=== PATIENT | female | born 1950 | race Caucasian/White ===

== ENCOUNTER 2016-09-28 09:43 | Emergency (ER) | payer MEDICARE, OTHER ==
[2016-09-28] MEDS ORDERED: Haloperidol Lactate 5 MG/ML SDV IM ONE ×2 (10:23→11:53)
[2016-09-28] MEDS ORDERED: Benztropine 1 MG Tab PO STA (10:23)
[2016-09-28] MEDS ORDERED: Sodium Chloride 0.9% 500 ML IV ONE (10:23)
--- NOTE | 2016-09-28 10:51 | EDM.PDOC ---
ED HPI GENERAL MEDICAL PROBLEM - General Chief Complaint: Neuro Symptoms/Deficits Stated Complaint: SEVERE MIGRAIN/FACE NUMBNESS Time Seen by Provider: 09/28/16 10:08 Source of Information: Reports: Patient, Family (), RN Notes Reviewed History Limitations: Reports: No Limitations - History of Present Illness INITIAL COMMENTS - FREE TEXT/NARRATIVE: The patient states that she developed an aura, which she describes as visual waves, at 15:00 on 09/24/2016. She went home, where she developed a headache felt in the back of her head, extending to her forehead. She also developed alternating right hand, left hand, and left leg numbness, along with some word finding difficulty. She took some Tylenol, and slept until Friday noon, 09/25/2016. At that time, her headache was minimal, but she continued to have left forearm/hand and left leg numbness, which has persisted until today. She states that she had some photophobia on Friday and Friday, but none presently. She had nausea on Friday, but no vomiting. She states that she had some weakness to her left upper and left lower extremity on Friday, but not now. Today she reports having an aura which she describes as seeing pink. She reports photophobia presently. She reports a dull sensation to the left side of her face and to her left foot. The patient states that she has a history of migraines, but has not had one about 5 years. Headache Pain Score (Numeric/FACES): 3 - Related Data Allergies Allergy/AdvReac Type Severity Reaction Status Date / Time carbamazepine [From Tegretol] Allergy Hallucinati Verified 09/28/16 10:02 ons AMANTIDINE Allergy Other Uncoded 09/28/16 10:01 antidressant. Allergy Change Uncoded 09/28/16 10:01 Mental Status INDERAL Allergy Other Uncoded 09/28/16 10:01 PRIMIDONE Allergy Other Uncoded 09/28/16 10:01 SULFA Allergy Rash Uncoded 09/28/16 10:01 TAPE AND ADHESIVES Allergy Redness Uncoded 09/28/16 10:01 Home Meds: Home Meds ALPRAZolam [Xanax] 1 mg PO QID PRN 05/01/14 [History] Cholecalciferol (Vitamin D3) [Vitamin D] 3,000 oz PO DAILY 05/01/14 [History] Estrogens, Conjugated [Premarin] 1.25 mg PO DAILY 05/01/14 [History] Fluticasone Propionate [Flonase] 2 spray NASBOTH DAILY 05/01/14 [History] Fluticasone Propionate [Flovent HFA] 2 puff INH BID 05/01/14 [History] Lisinopril 5 mg PO DAILY 05/01/14 [History] metFORMIN [Glucophage] 750 mg PO DAILY 05/01/14 [History] L Acidophil/B Lactis/B Longum [Florajen3] 1 tab PO DAILY 05/13/14 [History] Albuterol Sulfate [Proventil Hfa] 1 - 2 puff INH Q4H PRN 09/28/16 [History] Aspirin 81 mg PO DAILY 09/28/16 [History] Cholestyramine (With Sugar) [Questran Powder] 1 scoop PO DAILY 09/28/16 [History ] Rizatriptan Benzoate [Rizatriptan] 5 mg PO Q2H PRN #6 tab.rapdis 09/28/16 [Rx] metFORMIN [Glucophage XR] 500 mg PO BEDTIME 09/28/16 [History] Past Medical History Cardiovascular History: Reports: High Cholesterol Respiratory History: Reports: COPD Gastrointestinal History: Reports: Celiac Disease Genitourinary History: Reports: Renal Calculus, Urinary Incontinence Neurological History: Reports: Migraines, Other (See Below) (Essential tremor) Psychiatric History: Reports: Anxiety Endocrine/Metabolic History: Reports: Diabetes, Type II Oncologic (Cancer) History: Reports: Malignant Melanoma - Past Surgical History HEENT Surgical History: Reports: Tonsillectomy GI Surgical History: Reports: Appendectomy, Cholecystectomy Female Surgical History: Reports: Section (x 4), Hysterectomy, Salpingo-Oophorectomy Musculoskeletal Surgical History: Reports: Arthroscopic Procedure (left rotator cuff), ORIF (left humerus) Social & Family History - Family History Family Medical History: Noncontributory - Tobacco Use Smoking Status *Q: Current Every Day Smoker Years of Tobacco use: 45 Packs/Tins Daily: 0.5 Packs/Tins Daily Comment: down from 1 ppd Used Tobacco, but Quit: Yes - Alcohol Use Alcohol Use History: Yes Alcohol Use Frequency: Rarely - Recreational Drug Use Recreational Drug Use: No - Living Situation & Occupation Living situation: Reports: , with Spouse Occupation: Retired ED ROS GENERAL - Review of Systems Review Of Systems: See Below Constitutional: Reports: No Symptoms HEENT: Reports: No Symptoms Respiratory: Reports: No Symptoms Cardiovascular: Reports: No Symptoms Endocrine: Reports: No Symptoms GI/Abdominal: Reports: No Symptoms : Reports: No Symptoms Musculoskeletal: Reports: No Symptoms Skin: Reports: No Symptoms Neurological: Reports: No Symptoms Psychiatric: Reports: No Symptoms Hematologic/Lymphatic: Reports: No Symptoms Immunologic: Reports: No Symptoms ED EXAM, NEURO - Physical Exam Exam: See Below Exam Limited By: No Limitations General Appearance: Alert, WD/WN, No Apparent Distress Eye Exam: Bilateral Eye: Normal Inspection Ears: Normal External Exam, Hearing Grossly Normal Nose: Normal Inspection, No Blood Throat/Mouth: Normal Inspection, Normal Lips, Normal Voice, No Airway Compromise Head Exam: Atraumatic, Normocephalic Neck: Normal Inspection, Full Range of Motion Respiratory/Chest: No Respiratory Distress, Lungs Clear, Normal Breath Sounds, No Accessory Muscle Use Cardiovascular: Normal Peripheral Pulses, Regular Rate, Rhythm, No Gallop, No JVD, No Murmur, No Rub GI/Abdominal: Normal Bowel Sounds, Soft, Non-Tender, No Organomegaly, No Distention, No Abnormal Bruit, No Mass (Female) Exam: Deferred Rectal (Female) Exam: Deferred Neurological: Alert, Normal Dorsiflexion, CN II-XII Intact, Normal Plantar Flexion, No Motor/Sensory Deficits, Oriented x 3, Other (Resting tremor) Back Exam: Normal Inspection, Full Range of Motion, NT Extremities: Normal Inspection, Normal Range of Motion, No Pedal Edema, Normal Capillary Refill Psychiatric: Normal Affect Skin Exam: Warm, Dry, Intact, Normal Color, No Rash EKG INTERPRETATION EKG Date: 09/28/16 Time: 09:54 Rhythm: Other (Sinus tachycardia) Rate (Beats/Min): 111 [place]: Normal P-Wave: Present QRS: Normal ST-T: Normal QT: Normal Comparison: No Change (02/21/2015) Course - Vital Signs Last Recorded V/S: Last Vital Signs Temp 36.6 C 09/28/16 09:52 Pulse 93 09/28/16 13:10 Resp 18 09/28/16 13:10 BP 133/68 09/28/16 13:10 Pulse Ox 96 09/28/16 13:10 - Orders/Labs/Meds Orders: Active Orders 24 hr Category Date Time Status Head wo Cont [CT] Stat Exams 09/28/16 10:23 Taken Meds: Medications Discontinued Medications Generic Name Dose Route Start Last Admin Trade Name Freq PRN Reason Stop Dose Admin Benztropine Mesylate 1 mg 09/28/16 10:23 09/28/16 10:55 Cogentin PO 09/28/16 10:24 1 mg ONETIME STA Administration Haloperidol Lactate 5 mg 09/28/16 10:23 09/28/16 11:45 Haldol IM 09/28/16 10:24 Not Given ONETIME ONE Haloperidol Lactate 5 mg 09/28/16 11:53 09/28/16 11:55 Haldol IM 09/28/16 11:54 5 mg ONETIME ONE Administration Sodium Chloride 500 mls @ 1,000 mls/hr 09/28/16 10:23 09/28/16 10:50 Normal Saline IV 09/28/16 10:52 1,000 mls/hr .BOLUS ONE Administration - Radiology Interpretation Free Text/Narrative:: CT of the head without contrast is read by [facility] as "Chronic age related changes but no evidence of acute intracranial pathology." - Re-Assessments/Exams Free Text/Narrative Re-Assessment/Exam: 09/28/16 11:53 CT results discussed with the patient and her . The patient refused the Haldol, but took the Cogentin. Obviously, she is not feeling any better. I explained the purpose of the Haldol and Cogentin, and the patient has now agreed to take the Haldol. 09/28/16 12:33 Following Haldol, the patient now reports near-complete resolution of the numbness of her left upper and left lower extremities. She states that she feels much better. I will discharge her home with a prescription for Maxalt. Departure - Departure Time of Disposition: 12:34 Disposition: Home, Self-Care 01 Condition: Good Clinical Impression: Migraine headache with aura - Discharge Information Prescriptions: Rizatriptan Benzoate [Rizatriptan] 5 mg PO Q2H PRN #6 tab.rapdis PRN Reason: Headache Instructions: Migraine Headache, [id number] Referrals: Michelet,Kaiden G Jr, MD [Primary Care Provider] - Forms: ED Department Discharge Additional Instructions: You were seen in the emergency room for a headache with aura, and left upper and left lower extremity numbness. Workup in the ER included a CT scan of your head, which was normal. You received Haldol, Cogentin, and IV fluid in the ER, with significant improvement in her symptoms. This confirms that your symptoms were due to a migraine. We recommend you get plenty of rest today in a quiet, dark place. Stay well hydrated. Dissolve 1 tablet of the anti-migraine medicine Maxalt in your mouth at the earliest sign of a migraine headache. You may repeat every 2 hours, to a maximum of 30 mg within a 24-hour period. Follow-up with your PCP, Dr. Tafoya, as needed. If any other problems, please do not hesitate to return to the ER. - My Orders Last 24 Hours: My Active Orders 09/28/16 10:23 Head wo Cont [CT] Stat - Assessment/Plan Last 24 Hours: My Active Orders 09/28/16 10:23 Head wo Cont [CT] Stat
[2016-09-28 13:18] VITALS: BP 133/68
--- NOTE | 2016-09-30 14:37 | CT ---
Head CT Technique: Multiple axial sections through the brain were obtained. Study was repeated due to motion artifact. Comparison: Previous head CT exam of 05/13/14 and MRI of 05/13/14. Findings: Ventricles along with basal cisterns and sulci over the convexities are within normal limits for the patient's age. Minimal diminished density is noted within the periventricular white matter compatible with minimal small vessel ischemic demyelination change. No other abnormal parenchymal densities are seen. No evidence of intracranial hemorrhage. No midline shift or mass effect is seen. Bone window settings which show the visualized sinuses to appear clear. No acute calvarial abnormality is seen. Impression: 1. Slight senescent change. Nothing acute is identified on noncontrast head CT study. No significant change is seen from prior studies. Diagnostic code #2 I agree with preliminary report issued by [facility] ([facility] preliminary report dictated on 09/28/16, 11:52 AM Central Time)
== END 2016-09-28 13:10 | disposition home or self-care (01) ==
LOC: JD.ED 09:43
DX: G43.109 Migraine with aura, not intractable, without status migrainosus (principal); E78.00 Pure hypercholesterolemia, unspecified; J44.9 Chronic obstructive pulmonary disease, unspecified; E11.9 Type 2 diabetes mellitus without complications; F41.9 Anxiety disorder, unspecified; F17.210 Nicotine dependence, cigarettes, uncomplicated; Z88.8 Allergy status to other drugs, medicaments and biological substances; Z79.82 Long term (current) use of aspirin; Z79.4 Long term (current) use of insulin; Z79.84 Long term (current) use of oral hypoglycemic drugs; Z90.49 Acquired absence of other specified parts of digestive tract; Z98.890 Other specified postprocedural states; Z88.2 Allergy status to sulfonamides; Z90.710 Acquired absence of both cervix and uterus
CPT/HCPCS: 70450; 96360; 96361; 96372; 99284; A9270; J1630; J7040

== ENCOUNTER 2017-06-27 11:57 | Emergency (ER) | payer MEDICARE, OTHER ==
[2017-06-27 12:08] VITALS: BP 133/107
--- NOTE | 2017-06-27 12:17 | EDM.PDOC ---
ED HPI GENERAL MEDICAL PROBLEM - General Chief Complaint: Cardiovascular Problem Stated Complaint: TREMORS/DIZZY/FAST HEART RATE Time Seen by Provider: 06/27/17 12:16 Source of Information: Reports: Patient - History of Present Illness INITIAL COMMENTS - FREE TEXT/NARRATIVE: Patient is here for evaluation of dizziness and tachycardia. She notes that she typically has a high heart rate, she does have anxiety and is on Xanax 4 times daily as well as fluoxetine. She has a chronic tremor and has seen neurology for this. Patient also notes that she has been under extreme stress with family things recently. She denies any chest pain or shortness of breath. Episode of dizziness this morning was more of a lightheaded feeling when she was showering and she felt like she would pass out but she did not. She denies any pain at all currently. Does not currently feel dizzy. She has a history of hypertension but no CAD. Bilateral Shoulder Pain Score (Numeric/FACES): 2 - Related Data Allergies Allergy/AdvReac Type Severity Reaction Status Date / Time carbamazepine [From Tegretol] Allergy Hallucinati Verified 09/28/16 10:02 ons AMANTIDINE Allergy Other Uncoded 09/28/16 10:01 antidressant. Allergy Change Uncoded 09/28/16 10:01 Mental Status INDERAL Allergy Other Uncoded 09/28/16 10:01 PRIMIDONE Allergy Other Uncoded 09/28/16 10:01 SULFA Allergy Rash Uncoded 09/28/16 10:01 TAPE AND ADHESIVES Allergy Redness Uncoded 09/28/16 10:01 Home Meds: Home Meds ALPRAZolam [Xanax] 1 mg PO QID PRN 05/01/14 [History] Cholecalciferol (Vitamin D3) [Vitamin D] 4,000 unit PO DAILY 05/01/14 [History] Estrogens, Conjugated [Premarin] 1.25 mg PO DAILY 05/01/14 [History] Fluticasone Propionate [Flonase] 2 spray NASBOTH DAILY 05/01/14 [History] Fluticasone Propionate [Flovent HFA] 2 puff INH BID 05/01/14 [History] Lisinopril 5 mg PO DAILY 05/01/14 [History] metFORMIN [Glucophage] 750 mg PO DAILY 05/01/14 [History] Aspirin 81 mg PO DAILY 09/28/16 [History] Cholestyramine (With Sugar) [Questran Powder] 1 scoop PO DAILY 09/28/16 [History ] metFORMIN [Glucophage XR] 500 mg PO BEDTIME 09/28/16 [History] L.acidoph,Paraccoryi, B.lactis [Probiotic] 1 tab PO DAILY 06/27/17 [History] Past Medical History Cardiovascular History: Reports: High Cholesterol Respiratory History: Reports: COPD Gastrointestinal History: Reports: Celiac Disease Genitourinary History: Reports: Renal Calculus, Urinary Incontinence Other Musculoskeletal History: patient has hsitory of heriditary neck tremors. Neurological History: Reports: Migraines, Other (See Below) Other Neuro History: tremors Psychiatric History: Reports: Anxiety Endocrine/Metabolic History: Reports: Diabetes, Type II Oncologic (Cancer) History: Reports: Malignant Melanoma - Past Surgical History HEENT Surgical History: Reports: Tonsillectomy GI Surgical History: Reports: Appendectomy, Cholecystectomy Female Surgical History: Reports: Section, Hysterectomy, Salpingo- Oophorectomy Musculoskeletal Surgical History: Reports: Arthroscopic Procedure, ORIF Social & Family History - Family History Family Medical History: Noncontributory - Tobacco Use Smoking Status *Q: Current Every Day Smoker Years of Tobacco use: 45 Packs/Tins Daily: 0.2 Used Tobacco, but Quit: Yes Month/Year Tobacco Last Used: THIS MONTH - Caffeine Use Caffeine Use: Reports: None - Alcohol Use Days Per Week of Alcohol Use: 0 - Recreational Drug Use Recreational Drug Use: No - Living Situation & Occupation Living situation: Reports: , with Spouse Occupation: Retired ED ROS GENERAL - Review of Systems Review Of Systems: See Below Constitutional: Reports: Weakness, Fatigue. Denies: Fever, Chills, Malaise, Night Sweats, Decreased Appetite HEENT: Reports: No Symptoms Respiratory: Reports: Other (Recent URI, sx have resolved). Denies: Shortness of Breath, Wheezing, Cough Cardiovascular: Reports: Blood Pressure Problem, Lightheadedness. Denies: Chest Pain, Claudication, Dyspnea on Exertion, Edema, Orthopnea, Palpitations Endocrine: Reports: Fatigue GI/Abdominal: Reports: No Symptoms : Reports: No Symptoms Musculoskeletal: Reports: No Symptoms Skin: Reports: No Symptoms Neurological: Reports: Dizziness, Tremors. Denies: Headache, Numbness, Pre- Existing Deficit, Tingling, Trouble Speaking Psychiatric: Reports: Anxiety, Depression. Denies: Suicidal Ideation Hematologic/Lymphatic: Reports: No Symptoms ED EXAM, GENERAL - Physical Exam Exam: See Below Exam Limited By: No Limitations General Appearance: Alert, WD/WN, Anxious Ears: Normal External Exam, Normal Canal, Normal TMs Nose: Normal Inspection, Normal Mucosa Throat/Mouth: Normal Inspection, Normal Oropharynx Head: Atraumatic, Normocephalic Neck: Normal Inspection Respiratory/Chest: No Respiratory Distress, Lungs Clear, Normal Breath Sounds Cardiovascular: Normal Peripheral Pulses, Regular Rate, Rhythm, No Murmur Peripheral Pulses: 2+: Posterior Tibial (L), Posterior Tibial (R) GI/Abdominal: Normal Bowel Sounds, Soft, Non-Tender (Female) Exam: Normal External Exam Neurological: Alert, Oriented, No Motor/Sensory Deficits Psychiatric: Normal Affect, Anxious Skin Exam: Warm, Dry, Intact EKG INTERPRETATION EKG Date: 06/27/17 Time: 12:14 Rhythm: NSR Rate (Beats/Min): 96 Course - Vital Signs Last Recorded V/S: Last Vital Signs Temp 96.5 F 06/27/17 12:07 Pulse 105 H 06/27/17 12:07 Resp 17 06/27/17 12:07 BP 133/107 H 06/27/17 12:07 Pulse Ox 100 06/27/17 12:07 - Orders/Labs/Meds Orders: Active Orders 24 hr Category Date Time Status EKG 12 Lead [EKG Documentation Completion] [RC] STAT Care 06/27/17 12:12 Active UA W/MICROSCOPIC [URIN] Stat Lab 06/27/17 14:55 Results Sodium Chloride 0.9% [Saline Flush] Med 06/27/17 12:29 Active 10 ml FLUSH ASDIRECTED PRN Saline Lock Insert [OM.PC] Routine Oth 06/27/17 12:29 Ordered Medication Orders Sodium Chloride (Saline Flush) 10 ml FLUSH ASDIRECTED PRN PRN Reason: Keep Vein Open Last Admin: 06/27/17 12:41 Dose: 10 ml Labs: Laboratory Tests 06/27/17 06/27/17 06/27/17 Range/Units 12:40 12:40 12:40 WBC 11.80 H (3.98-10.04) K/mm3 RBC 4.39 (3.98-5.22) M/mm3 Hgb 13.5 (11.2-15.7) gm/L Hct 40.2 (34.1-44.9) % MCV 91.6 (79.4-94.8) fl MCH 30.8 (25.6-32.2) pg MCHC 33.6 (32.2-35.5) g/dl RDW Std Deviation 44.0 (36.4-46.3) fL Plt Count 386 H (182-369) K/mm3 MPV 8.8 L (9.4-12.3) fl Neutrophils % (Manual) 71 H (40-60) % Band Neutrophils % 0 (0-10) % Lymphocytes % (Manual) 28 (20-40) % Atypical Lymphs % 0 % Monocytes % (Manual) 1 L (2-10) % Eosinophils % (Manual) 0 L (0.7-5.8) % Basophils % (Manual) 0 L (0.1-1.2) Platelet Estimate Adequate Plt Morphology Comment Normal RBC Morph Comment Normal Sodium 140 (136-145) mEq/L Potassium 4.5 (3.5-5.1) mEq/L Chloride 100 (98-107) mEq/L Carbon Dioxide 25 (21-32) mEq/L Anion Gap 19.5 H (5-15) BUN 12 (7-18) mg/dL Creatinine 0.9 (0.55-1.02) mg/dL Est Cr Clr Drug Dosing 50.86 mL/min Estimated GFR (MDRD) > 60 (>60) mL/min BUN/Creatinine Ratio 13.3 L (14-18) Glucose 151 H (80-115) mg/dL Calcium 9.4 (8.5-10.1) mg/dL Magnesium 1.1 L (1.8-2.4) mg/dl Total Bilirubin 0.2 (0.2-1.0) mg/dL AST 11 L (15-37) U/L ALT 20 (14-59) U/L Alkaline Phosphatase 67 (46-116) U/L Troponin I < 0.017 (0.00-0.056) ng/mL C-Reactive Protein 1.4 H* (<1.0) mg/dL Total Protein 6.9 (6.4-8.2) g/dl Albumin 3.5 (3.4-5.0) g/dl Globulin 3.4 gm/dL Albumin/Globulin Ratio 1.0 (1-2) TSH 3rd Generation 1.495 (0.358-3.74) uIU/mL Urine Color (Yellow) Urine Appearance (Clear) Urine pH (5.0-8.0) Ur Specific B[place]y (1.005-1.030) Urine Protein (Negative) Urine Glucose (UA) (Negative) Urine Ketones (Negative) Urine Occult Blood (Negative) Urine Nitrite (Negative) Urine Bilirubin (Negative) Urine Urobilinogen (0.2-1.0) Ur Leukocyte Esterase (Negative) 06/27/17 Range/Units 14:55 WBC (3.98-10.04) K/mm3 RBC (3.98-5.22) M/mm3 Hgb (11.2-15.7) gm/L Hct (34.1-44.9) % MCV (79.4-94.8) fl MCH (25.6-32.2) pg MCHC (32.2-35.5) g/dl RDW Std Deviation (36.4-46.3) fL Plt Count (182-369) K/mm3 MPV (9.4-12.3) fl Neutrophils % (Manual) (40-60) % Band Neutrophils % (0-10) % Lymphocytes % (Manual) (20-40) % Atypical Lymphs % % Monocytes % (Manual) (2-10) % Eosinophils % (Manual) (0.7-5.8) % Basophils % (Manual) (0.1-1.2) Platelet Estimate Plt Morphology Comment RBC Morph Comment Sodium (136-145) mEq/L Potassium (3.5-5.1) mEq/L Chloride (98-107) mEq/L Carbon Dioxide (21-32) mEq/L Anion Gap (5-15) BUN (7-18) mg/dL Creatinine (0.55-1.02) mg/dL Est Cr Clr Drug Dosing mL/min Estimated GFR (MDRD) (>60) mL/min BUN/Creatinine Ratio (14-18) Glucose (80-115) mg/dL Calcium (8.5-10.1) mg/dL Magnesium (1.8-2.4) mg/dl Total Bilirubin (0.2-1.0) mg/dL AST (15-37) U/L ALT (14-59) U/L Alkaline Phosphatase (46-116) U/L Troponin I (0.00-0.056) ng/mL C-Reactive Protein (<1.0) mg/dL Total Protein (6.4-8.2) g/dl Albumin (3.4-5.0) g/dl Globulin gm/dL Albumin/Globulin Ratio (1-2) TSH 3rd Generation (0.358-3.74) uIU/mL Urine Color Yellow (Yellow) Urine Appearance Clear (Clear) Urine pH 6.0 (5.0-8.0) Ur Specific B[place]y 1.015 (1.005-1.030) Urine Protein Negative (Negative) Urine Glucose (UA) Negative (Negative) Urine Ketones Negative (Negative) Urine Occult Blood Negative (Negative) Urine Nitrite Negative (Negative) Urine Bilirubin Negative (Negative) Urine Urobilinogen 0.2 (0.2-1.0) Ur Leukocyte Esterase Negative (Negative) Meds: Medications Generic Name Dose Route Start Last Admin Trade Name Freq PRN Reason Stop Dose Admin Sodium Chloride 10 ml 06/27/17 12:29 06/27/17 12:41 Saline Flush FLUSH 10 ml ASDIRECTED PRN Administration Keep Vein Open - Re-Assessments/Exams Free Text/Narrative Re-Assessment/Exam: Patient's neurologic exam was essentially normal with the exception of her tremor which is chronic. She does see neurology for this. Patient is quite anxious. She denies any current dizziness. Denies chest pain. EKG demonstrates normal sinus rhythm with rate of 96. WBC is 11,800 which patient states is normal for her. She is 71 percentage frozen no bands. Anion gap is elevated at 19.5, fluids were not given as patient declined them and she is taking fluids adequately. CRP is elevated at 1.4. TSH normal at 1.495. Troponin is negative. Magnesium low at 1.1, patient states that she was previously on an over-the- counter magnesium supplement and she plans to resume this. Unclear cause for patient's dizziness earlier, it was early in the morning and she had not had anything to eat or drink. Could also be related to her anxiety which she states has been significantly worse recently. Will discharge her home, she will follow up with her primary provider next week to discuss other treatment options if indicated or return to the emergency room if needed. 06/27/17 15:21 06/27/17 15:22 06/27/17 15:23 Departure - Departure Time of Disposition: 15:36 Disposition: Home, Self-Care 01 Condition: Good Clinical Impression: Dizziness, Anxiety Instructions: Dizziness, [id number] Referrals: Kaiden Tafoya Jr, MD [Primary Care Provider] - Forms: ED Department Discharge Additional Instructions: You evaluated in the emergency room for an episode of dizziness and rapid heart rate. Workup in the emergency room was essentially normal. Your EKG was normal Your magnesium was low, I recommend that you resume using [id number] magnesium supplement. You need to follow-up with your primary provider or certainly return to the emergency room if needed. - My Orders Last 24 Hours: My Active Orders 06/27/17 12:12 EKG 12 Lead [EKG Documentation Completion] [RC] STAT 06/27/17 12:29 Sodium Chloride 0.9% [Saline Flush] 10 ml FLUSH ASDIRECTED PRN Saline Lock Insert [OM.PC] Routine 06/27/17 14:55 UA W/MICROSCOPIC [URIN] Stat - Assessment/Plan Last 24 Hours: My Active Orders 06/27/17 12:12 EKG 12 Lead [EKG Documentation Completion] [RC] STAT 06/27/17 12:29 Sodium Chloride 0.9% [Saline Flush] 10 ml FLUSH ASDIRECTED PRN Saline Lock Insert [OM.PC] Routine 06/27/17 14:55 UA W/MICROSCOPIC [URIN] Stat
[2017-06-27] MEDS: Sodium Chloride 0.9% 10 ML Syringe FLUSH PRN (12:41)
== END 2017-06-27 15:55 | disposition home or self-care (01) ==
LOC: JD.ED 11:57
DX: F41.9 Anxiety disorder, unspecified (principal); R42 Dizziness and giddiness; I10 Essential (primary) hypertension; E78.00 Pure hypercholesterolemia, unspecified; J44.9 Chronic obstructive pulmonary disease, unspecified; E11.9 Type 2 diabetes mellitus without complications; F17.210 Nicotine dependence, cigarettes, uncomplicated; Z79.84 Long term (current) use of oral hypoglycemic drugs; Z79.82 Long term (current) use of aspirin; Z79.51 Long term (current) use of inhaled steroids; Z79.899 Other long term (current) drug therapy; Z88.8 Allergy status to other drugs, medicaments and biological substances; Z91.048 Other nonmedicinal substance allergy status
CPT/HCPCS: 36415; 80053; 81001; 83735; 84443; 84484; 85025; 86140; 93005; 99285; J7050

== ENCOUNTER 2020-06-05 10:52 | Observation (INO) | payer MEDICARE, OTHER ==
[2020-06-05] MEDS ORDERED: Metoclopramide 10 MG/2 ML SDV IVPUSH ONE (11:28)
[2020-06-05] MEDS ORDERED: Sodium Chloride 0.9% 1,000 ML IV SCH ×3 (11:30→17:00)
--- NOTE | 2020-06-05 11:33 | EDM.PDOC ---
ED HPI GENERAL MEDICAL PROBLEM - General Chief Complaint: Gastrointestinal Problem Stated Complaint: VOMITING Time Seen by Provider: 06/05/20 11:27 Source of Information: Reports: Patient, Family History Limitations: Reports: No Limitations - History of Present Illness INITIAL COMMENTS - FREE TEXT/NARRATIVE: 69-year-old female presents to the ED in the accompaniment of her . History suggest that she went to bed feeling a little bit unwell in her stomach. She states sometimes when she eats does not agree with her. She started vomiting about 0200 hrs. this morning and is vomited 10 times overnight. Emesis is all bilious or dry heaves without any sign of hematemesis. She did have 1 formed stool without blood. No diarrhea. Did have some diffuse upper abdominal cramping pain for period of time. Patient still has her gallbladder in place. Denies any pain persistently in the right upper quadrant or into her right back. Her blood sugar this morning was 200. She rarely achieves a blood sugar that high. It usually 100-120. She did take her Metformin 500 mg tablet this morning. She also took her Xanax 0.5 mg by mouth as well. Patient has diffuse severe essential tremors. She feels lightheaded dizzy and very weak. No defined fever or chills. Her ate the same food as she did and he is not unwell. Therefore very unlikely to be any foodborne related illness.. Onset: Today, Sudden Onset Date: 06/05/20 Onset Time: 02:00 Duration: Hour(s):, Improving (Not vomited for the last 3 hours.) Location: Reports: Abdomen (Vomiting most of the night.) Quality: Reports: Ache, Pressure (Epigastrium and left upper quadrant of the abdomen) Severity: Moderate Improves with: Reports: Other (Meeting did make the pain somewhat better.) Worsens with: Reports: Eating Context: Reports: Other (Spontaneous vomiting overnight.). Denies: Activity, Exercise, Lifting, Sick Contact, Trauma Associated Symptoms: Reports: Cough (Normal cough.), Loss of Appetite, Malaise, Nausea/Vomiting, Weakness (All night long.), Other (Lightheaded and dizzy.). 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 AdvReac Change Uncoded 06/05/20 16:47 Mental Status Home Meds: Home Meds ALPRAZolam [Xanax] 1 mg PO QID 05/01/14 [History] Cholecalciferol (Vitamin D3) [Vitamin D3] 2,000 unit PO DAILY 05/01/14 [History] Estrogens, Conjugated [Premarin] 1.25 mg PO QPM 05/01/14 [History] Fluticasone Propionate [Flonase] 2 spray NASBOTH DAILY 05/01/14 [History] Fluticasone Propionate [Flovent HFA] 2 puff INH BID 05/01/14 [History] Lisinopril 5 mg PO DAILY 05/01/14 [History] metFORMIN [Glucophage] 750 mg PO DAILY 05/01/14 [History] Aspirin 81 mg PO DAILY 09/28/16 [History] metFORMIN [Glucophage XR] 500 mg PO BEDTIME 09/28/16 [History] L.acidoph,Paracasei, B.lactis [Probiotic] 1 tab PO DAILY 06/27/17 [History] Cholecalciferol (Vitamin D3) [Vitamin D3] 1,000 units PO BEDTIME 06/05/20 [History] Cholestyramine/Sucrose [Cholestyramine] 1 scoop PO QAM 06/05/20 [History] Ondansetron [Zofran ODT] 4 mg PO Q6H PRN #8 tab.dis 06/06/20 [Rx] Past Medical History Cardiovascular History: Reports: High Cholesterol Respiratory History: Reports: COPD Gastrointestinal History: Reports: Celiac Disease Genitourinary History: Reports: Renal Calculus, Urinary Incontinence Other Musculoskeletal History: patient has hsitory of heriditary neck tremors. Neurological History: Reports: Migraines, Other (See Below) Other Neuro History: Severe generalized familial tremors. Psychiatric History: Reports: Anxiety Endocrine/Metabolic History: Reports: Diabetes, Type II Oncologic (Cancer) History: Reports: Malignant Melanoma - Infectious Disease History Infectious Disease History: Reports: Novel Coronavirus - Past Surgical History HEENT Surgical History: Reports: Tonsillectomy GI Surgical History: Reports: Appendectomy, Cholecystectomy Female Surgical History: Reports: Section, Hysterectomy, Salpingo- Oophorectomy Musculoskeletal Surgical History: Reports: Arthroscopic Procedure, ORIF Social & Family History - Family History Family Medical History: No Pertinent Family History - Tobacco Use Tobacco Use Status *Q: Current Every Day Tobacco User Years of Tobacco use: 30 Packs/Tins Daily: 0.2 Second Hand Smoke Exposure: No - Caffeine Use Caffeine Use: Reports: Coffee - Recreational Drug Use Recreational Drug Use: No - Living Situation & Occupation Living situation: Reports: , with Spouse Occupation: Retired ED ROS GENERAL - Review of Systems Review Of Systems: See Below Constitutional: Reports: Malaise, Weakness, Fatigue, Decreased Appetite. Denies: Fever, Chills HEENT: Reports: No Symptoms Respiratory: Reports: Other (He and her both had COVID-19 illness back in January. She took about 6 weeks to get better on her own.). Denies: Shortness of Breath, Wheezing, Pleuritic Chest Pain, Cough, Sputum, Hemoptysis Cardiovascular: Reports: Blood Pressure Problem, Dyspnea on Exertion (Occasion .), Lightheadedness. Denies: Chest Pain, Claudication, Edema (Ashlie today.), Orthopnea Endocrine: Reports: Fatigue GI/Abdominal: Reports: Abdominal Pain, Decreased Appetite (Epigastric pressure discomfort), Nausea, Vomiting (Current nausea and vomiting of bilious material throughout most of the night.). Denies: Diarrhea : Reports: Frequency, Incontinence (Incontinent of urine both stress and urge components.) Musculoskeletal: Reports: Back Pain, Joint Pain (His hips neck at times) Skin: Reports: No Symptoms Neurological: Reports: Difficulty Walking, Weakness, Other (Severe generalized familial tremor making it difficult to walk). Denies: Headache, Numbness, Tingling Psychiatric: Reports: No Symptoms Hematologic/Lymphatic: Reports: No Symptoms Immunologic: Reports: No Symptoms ED EXAM, GI/ABD - Physical Exam Exam: See Below Exam Limited By: No Limitations General Appearance: Alert, WD/WN, Mild Distress, Other (Patient is diffusely tremulous at rest. She is able to converse normally. Clinically I found her to be warm to palpation. Nurses recorded temperature of 37.4 degrees. Heart rate 108 and sinus at the bedside respiratory is 18 with O2 sats 96% on room air BP 149/59.) Eyes: Bilateral: Normal Appearance (No scleral icterus or blepharal pallor.) Throat/Mouth: Other (Tongue is mildly dry and coated.) Head: Atraumatic, Normocephalic Neck: Normal Inspection, Supple, Non-Tender, Full Range of Motion. No: Lymphadenopathy (L), Lymphadenopathy (R) Respiratory/Chest: No Respiratory Distress, Lungs Clear, Normal Breath Sounds, No Accessory Muscle Use Cardiovascular: Normal Peripheral Pulses, No Edema (Cardiac arrest 108/min.), No Gallop, No Murmur, No Rub, Tachycardia GI/Abdominal Exam: Normal Bowel Sounds, Soft, Non-Tender, No Organomegaly, No Abnormal Bruit, No Mass, Pelvis Stable Back Exam: Normal Inspection, Full Range of Motion. No: CVA Tenderness (L), CVA Tenderness (R) Extremities: Normal Inspection, Normal Range of Motion, Non-Tender, No Pedal Edema, Other (Note the patient does have some mild paronychial infection of her left second toe but not enough to cause any lymphangitis or serious infection.) Neurological: Alert, Oriented, CN II-XII Intact, Normal Cognition, No Motor/Sensory Deficits, Other (Fuhs unrelenting tremors in all extremities.). No: Normal Gait Psychiatric: Normal Affect, Normal Mood Skin Exam: Warm, Dry, Intact, Normal Color, No Rash #1 Interpretation EKG Date: 06/05/20 Time: 11:33 Rhythm: Other Rate (Beats/Min): 103 [place]: Normal P-Wave: Enlarged (Consider left atrial hypertrophy) QRS: Other (Initial poor R wave progression may be due to lead placement. Decreased voltage in the limb leads.) ST-T: Other (T wave flattening in aVL and V2 nonspecific findings) QT: Normal EKG Interpretation Comments: ECG Course - Vital Signs Last Recorded V/S: Last Vital Signs Temp 36.3 C 06/06/20 11:50 Pulse 73 06/06/20 11:50 Resp 16 06/06/20 11:50 BP 128/85 06/06/20 11:50 Pulse Ox 97 06/06/20 11:50 - Orders/Labs/Meds Labs: Laboratory Tests 06/05/20 06/05/20 06/05/20 Range/Units 11:45 11:45 11:45 WBC 17.29 H (3.98-10.04) K/mm3 RBC 4.80 (3.98-5.22) M/mm3 Hgb 14.7 (11.2-15.7) gm/dl Hct 44.1 (34.1-44.9) % MCV 91.9 (79.4-94.8) fl MCH 30.6 (25.6-32.2) pg MCHC 33.3 (32.2-35.5) g/dl RDW Std Deviation 43.9 (36.4-46.3) fL Plt Count 371 H (182-369) K/mm3 MPV 9.2 L (9.4-12.3) fl Neutrophils % (Manual) 96 H (40-60) % Band Neutrophils % 0 (0-10) % Lymphocytes % (Manual) 4 L (20-40) % Atypical Lymphs % 0 % Monocytes % (Manual) 0 L (2-10) % Eosinophils % (Manual) 0 L (0.7-5.8) % Basophils % (Manual) 0 L (0.1-1.2) Platelet Estimate Adequate RBC Morph Comment Normal Sodium 139 (136-145) mEq/L Potassium 4.3 (3.5-5.1) mEq/L Chloride 100 (98-107) mEq/L Carbon Dioxide 25 (21-32) mEq/L Anion Gap 18.3 H (5-15) BUN 22 H (7-18) mg/dL Creatinine 0.8 (0.55-1.02) mg/dL Est Cr Clr Drug Dosing 54.90 mL/min Estimated GFR (MDRD) > 60 (>60) mL/min BUN/Creatinine Ratio 27.5 H (14-18) Glucose 209 H (80-115) mg/dL Hemoglobin A1c ( - 5.6) % Lactic Acid (0.4-2.0) mmol/L Calcium 8.3 L (8.5-10.1) mg/dL Magnesium 1.2 L (1.8-2.4) mg/dl Total Bilirubin 0.4 (0.2-1.0) mg/dL AST 11 L (15-37) U/L ALT 22 (14-59) U/L Alkaline Phosphatase 66 (46-116) U/L Troponin I < 0.017 (0.00-0.056) ng/mL C-Reactive Protein 3.8 H* (<1.0) mg/dL NT-Pro-B Natriuret Pep 57 (0-125) pg/mL Total Protein 7.2 (6.4-8.2) g/dl Albumin 3.2 L (3.4-5.0) g/dl Globulin 4.0 gm/dL Albumin/Globulin Ratio 0.8 L (1-2) Urine Color (Yellow) Urine Appearance (Clear) Urine pH (5.0-8.0) Ur Specific [place] (1.005-1.030) Urine Protein (Negative) Urine Glucose (UA) (Negative) Urine Ketones (Negative) Urine Occult Blood (Negative) Urine Nitrite (Negative) Urine Bilirubin (Negative) Urine Urobilinogen (0.2-1.0) Ur Leukocyte Esterase (Negative) Urine RBC (0-5) /hpf Urine WBC (0-5) /hpf Ur Epithelial Cells (0-5) /hpf Urine Bacteria (FEW) /hpf Urine Mucus (FEW) /hpf SARS-CoV-2 RNA (IFEANYI) (NEGATIVE) 06/05/20 06/05/20 06/05/20 Range/Units 11:45 11:55 13:15 WBC (3.98-10.04) K/mm3 RBC (3.98-5.22) M/mm3 Hgb (11.2-15.7) gm/dl Hct (34.1-44.9) % MCV (79.4-94.8) fl MCH (25.6-32.2) pg MCHC (32.2-35.5) g/dl RDW Std Deviation (36.4-46.3) fL Plt Count (182-369) K/mm3 MPV (9.4-12.3) fl Neutrophils % (Manual) (40-60) % Band Neutrophils % (0-10) % Lymphocytes % (Manual) (20-40) % Atypical Lymphs % % Monocytes % (Manual) (2-10) % Eosinophils % (Manual) (0.7-5.8) % Basophils % (Manual) (0.1-1.2) Platelet Estimate RBC Morph Comment Sodium (136-145) mEq/L Potassium (3.5-5.1) mEq/L Chloride (98-107) mEq/L Carbon Dioxide (21-32) mEq/L Anion Gap (5-15) BUN (7-18) mg/dL Creatinine (0.55-1.02) mg/dL Est Cr Clr Drug Dosing mL/min Estimated GFR (MDRD) (>60) mL/min BUN/Creatinine Ratio (14-18) Glucose (80-115) mg/dL Hemoglobin A1c 7.3 H ( - 5.6) % Lactic Acid 2.3 H* (0.4-2.0) mmol/L Calcium (8.5-10.1) mg/dL Magnesium (1.8-2.4) mg/dl Total Bilirubin (0.2-1.0) mg/dL AST (15-37) U/L ALT (14-59) U/L Alkaline Phosphatase (46-116) U/L Troponin I (0.00-0.056) ng/mL C-Reactive Protein (<1.0) mg/dL NT-Pro-B Natriuret Pep (0-125) pg/mL Total Protein (6.4-8.2) g/dl Albumin (3.4-5.0) g/dl Globulin gm/dL Albumin/Globulin Ratio (1-2) Urine Color Yellow (Yellow) Urine Appearance Clear (Clear) Urine pH 6.0 (5.0-8.0) Ur Specific [place] 1.025 (1.005-1.030) Urine Protein Negative (Negative) Urine Glucose (UA) Negative (Negative) Urine Ketones 2+ H (Negative) Urine Occult Blood Negative (Negative) Urine Nitrite Negative (Negative) Urine Bilirubin 1+ H (Negative) Urine Urobilinogen 0.2 (0.2-1.0) Ur Leukocyte Esterase Negative (Negative) Urine RBC 0-5 (0-5) /hpf Urine WBC 0-5 (0-5) /hpf Ur Epithelial Cells 5-10 H (0-5) /hpf Urine Bacteria Rare (FEW) /hpf Urine Mucus Few (FEW) /hpf SARS-CoV-2 RNA (IFEANYI) (NEGATIVE) 06/05/20 06/05/20 Range/Units 14:32 14:57 WBC (3.98-10.04) K/mm3 RBC (3.98-5.22) M/mm3 Hgb (11.2-15.7) gm/dl Hct (34.1-44.9) % MCV (79.4-94.8) fl MCH (25.6-32.2) pg MCHC (32.2-35.5) g/dl RDW Std Deviation (36.4-46.3) fL Plt Count (182-369) K/mm3 MPV (9.4-12.3) fl Neutrophils % (Manual) (40-60) % Band Neutrophils % (0-10) % Lymphocytes % (Manual) (20-40) % Atypical Lymphs % % Monocytes % (Manual) (2-10) % Eosinophils % (Manual) (0.7-5.8) % Basophils % (Manual) (0.1-1.2) Platelet Estimate RBC Morph Comment Sodium (136-145) mEq/L Potassium (3.5-5.1) mEq/L Chloride (98-107) mEq/L Carbon Dioxide (21-32) mEq/L Anion Gap (5-15) BUN (7-18) mg/dL Creatinine (0.55-1.02) mg/dL Est Cr Clr Drug Dosing mL/min Estimated GFR (MDRD) (>60) mL/min BUN/Creatinine Ratio (14-18) Glucose (80-115) mg/dL Hemoglobin A1c ( - 5.6) % Lactic Acid 2.9 H* (0.4-2.0) mmol/L Calcium (8.5-10.1) mg/dL Magnesium (1.8-2.4) mg/dl Total Bilirubin (0.2-1.0) mg/dL AST (15-37) U/L ALT (14-59) U/L Alkaline Phosphatase (46-116) U/L Troponin I (0.00-0.056) ng/mL C-Reactive Protein (<1.0) mg/dL NT-Pro-B Natriuret Pep (0-125) pg/mL Total Protein (6.4-8.2) g/dl Albumin (3.4-5.0) g/dl Globulin gm/dL Albumin/Globulin Ratio (1-2) Urine Color (Yellow) Urine Appearance (Clear) Urine pH (5.0-8.0) Ur Specific [place] (1.005-1.030) Urine Protein (Negative) Urine Glucose (UA) (Negative) Urine Ketones (Negative) Urine Occult Blood (Negative) Urine Nitrite (Negative) Urine Bilirubin (Negative) Urine Urobilinogen (0.2-1.0) Ur Leukocyte Esterase (Negative) Urine RBC (0-5) /hpf Urine WBC (0-5) /hpf Ur Epithelial Cells (0-5) /hpf Urine Bacteria (FEW) /hpf Urine Mucus (FEW) /hpf SARS-CoV-2 RNA (IFEANYI) Negative (NEGATIVE) Meds: Medications Discontinued Medications Generic Name Dose Route Start Last Admin Trade Name Freq PRN Reason Stop Dose Admin Acetaminophen 650 mg 06/05/20 11:31 06/06/20 05:58 Tylenol PO 650 mg Q4H PRN Administration Pain Acetaminophen 650 mg 06/05/20 18:32 Tylenol RECTAL Q4H PRN Pain (mild 1-3) Aspirin 81 mg 06/06/20 09:00 06/06/20 09:32 Halfprin PO Not Given DAILY MIA Cholecalciferol 50 mcg 06/06/20 09:00 06/06/20 09:33 Vitamin D3 PO Not Given DAILY MIA Cholecalciferol 25 mcg 06/06/20 21:00 Vitamin D3 PO BEDTIME MIA Cholestyramine Resin 4 gm 06/07/20 08:00 Cholestyramine Packet PO QAM MIA Diatrizoate Meglum/Diatrizoate Sod 120 ml 06/05/20 14:26 06/05/20 15:47 Gastrografin 37% PO 06/05/20 14:27 120 ml ONETIME ONE Administration Enoxaparin Sodium 40 mg 06/06/20 09:00 06/06/20 09:55 Lovenox SUBCUT Not Given DAILY MIA Sodium Chloride 1,000 mls @ 999 mls/hr 06/05/20 11:30 06/05/20 11:57 Normal Saline IV 999 mls/hr ASDIRECTED MIA Administration Sodium Chloride 1,000 mls @ 250 mls/hr 06/05/20 13:15 06/05/20 13:23 Normal Saline IV 250 mls/hr ASDIRECTED MIA Administration Ceftriaxone Sodium 2 gm/ 100 mls @ 200 mls/hr 06/05/20 13:14 06/05/20 13:23 Sodium Chloride IV 06/05/20 13:43 200 mls/hr ONETIME ONE Administration Sodium Chloride 1,000 mls @ 999 mls/hr 06/05/20 17:00 06/05/20 18:07 Normal Saline IV 999 mls/hr ASDIRECTED MIA Administration Sodium Chloride 1,000 mls @ 125 mls/hr 06/05/20 18:45 06/06/20 05:57 Normal Saline IV 125 mls/hr ASDIRECTED MIA Administration Magnesium Sulfate 2 gm in 50 mls @ 25 mls/hr 06/06/20 10:30 06/06/20 12:01 Magnesium Sulfate In Water 2 Gm/50 Ml IV 06/06/20 12:29 25 mls/hr ONETIME ONE Administration Insulin Human Lispro 0 unit 06/05/20 22:00 06/06/20 12:01 Humalog SUBCUT 1 unit QIDACANDBED MIA Administration Protocol Iopamidol 100 ml 06/05/20 14:26 06/05/20 15:47 Isovue-300 (61%) IVPUSH 06/05/20 14:27 100 ml ONETIME ONE Administration Metoclopramide HCl 7.5 mg 06/05/20 11:28 06/05/20 11:57 Reglan IVPUSH 06/05/20 11:29 7.5 mg ONETIME ONE Administration Alprazolam [Xanax] 1 0 mg 06/06/20 12:00 06/06/20 12:02 Mg Ptom PO 1 mg 0800,1200,1600,2100 MIA Administration Estrogens, 0 mg 06/06/20 18:00 Conjugated 1.25 Mg PO Tab Ptom QPM MIA Fluticasone 0 spray 06/06/20 12:00 06/06/20 13:25 Propionate [Flonase] .XX Not Given Ptom DAILY MIA Fluticasone 0 puff 06/06/20 12:00 06/06/20 13:25 Propionate 220 Mcg/ INH Not Given Act [Flovent Hfa] BID MIA Ptom Lisinopril [ 0 mg 06/06/20 12:00 06/06/20 13:25 Lisinopril] 5 Mg Tab PO Not Given Ptom DAILY MIA Ondansetron HCl 4 mg 06/05/20 18:32 Zofran IV Q4H PRN Nausea/Vomiting Potassium Chloride 40 meq 06/06/20 10:30 06/06/20 12:01 Klor-Con M20 PO 06/06/20 10:31 40 meq ONETIME ONE Administration Saccharomyces Boulardii 250 mg 06/06/20 09:00 06/06/20 10:24 Florastor PO Not Given DAILY MIA Sodium Chloride 10 ml 06/05/20 14:26 06/05/20 15:47 Saline Flush FLUSH 10 ml ONETIME PRN Administration IV FLUSH - Radiology Interpretation Free Text/Narrative:: 69-year-old female presents to the ED feeling unwell since 0200 hrs. this morning since she awoke and started vomiting. Estimates she vomited about 10 times overnight with primary bilious emesis. One soft semiformed stool this morning without blood. Mild associated upper abdominal cramping pain relieved by vomiting. She does not drink alcohol. She states sometimes foods that she eats do not sit with her real well. Question is whether or not she has a bit of a gastroparesis from diabetes. Patient is debilitated by a severe generalized essential tremor making it difficult to walk. On my examination she is warm to palpation and nurses recorded temperature of 37.4 as well. She is incontinent of urine. She will have a septic work-up carried out including 1 view chest x- ray. Both her and her had COVID-19 illness back in January early February of this year and got better on their own without having to coming to hospital. Patient will be given IV fluids normal saline at open. Blood sugar at home was reportedly 200. Given Reglan 7.5 mg IV for nausea relief and Tylenol 650 mg p.o. for fever relief. - Re-Assessments/Exams Free Text/Narrative Re-Assessment/Exam: 06/05/20 12:11 Portable chest x-ray is within normal limits. No pleural effusion no pneumothorax cardiac silhouette is normal. Coincidental finding is 2 screws embedded within the left humeral head as part of orthopedic fixation. Free Text/Narrative Re-Assessment/Exam: 06/05/20 12:33 White count is markedly elevated at 17.29 with an. Hemoglobin is 14.7 with hematocrit of 44.1. MCV is normal at 91.9. Platelet count is 371,000. Hemoglobin A1c is 7.3 lactic acid mildly elevated at 2.3. 06/05/20 13:09 Sodium is 139 with a potassium of 4.3. Chloride is 100 with a bicarb of 25. Anion gap is elevated at 18.3. BUN is 22 with a creatinine of 0.8. GFR is greater than 60. Glucose is 209. Hemoglobin A1c is 7.3. Lactic acid mildly elevated 2.3. Calcium is 8.3 with a magnesium of 1.2 very low. Liver function is normal. Troponin I is less than 0.017 C-reactive protein is 3.8 BNP is normal at 57 total protein 7.2 with an albumin fraction of 3.2 urinalysis is not yet available. Patient has finished a liter of IV fluids. She now feels she might be able to void. We will collect a urine sample which I suspect is likely the source of her infection so that I can start her on antibiotics right away. Plan will be to start her on Rocephin 2 g IV. 06/05/20 13:42 Urinalysis reveals 2+ ketones 1+ bilirubin negative glucose site esterase micro is pending. 06/05/20 14:07 The micro on the urinalysis shows 5-10 epithelial cells but 0-5 white cells and 0-5 red cells. CRP is 3.8 lactic acid was 2.3. For definitive source of infection is not yet been identified. Examined her abdomen and I can find no localized source of peritonitis or inflammation to suggest an intra- abdominal source for her infection. I will discussed the case with Dr. Sullivan on-call hospitalist with a view to admission to the hospital. If he wishes to pursue CT of the abdomen with this will be carried out in the ED. 06/05/20 14:24 I did discuss the case with Dr. Sullivan and he wishes us to go ahead and have CT of the abdomen pelvis performed. She has had a previous appendectomy and cholecystectomy and I cannot find any clinical evidence of a diverticulitis to account for her elevated white count and infection. Her repeat lactic acid is booked for 1455 hrs. Initial lactic acid was 2.4. IV is normal saline running at 250 mils per hour 06/05/20 16:30 CT of the abdomen and pelvis has been completed with IV and oral contrast. Liver contains no focal parenchymal abnormality. Surgical clips are noted from prior cholecystectomy. Questionable esophageal wall thickening within the distal esophagus suggesting possibility of mild gastroesophageal reflux disease. Spleen appears normal. Adrenal glands show no nodules. No discrete pancreatic finding is seen. Kidneys show surrounding increased density with the in the fat which is similar to prior study and is chronic. Nonobstructing calculus is noted within the upper right kidney measuring 4 to 5 mm. No ureteral dilatation or ureteral stone is identified. Aorta shows no aneurysm. Atherosclerotic calcification is seen within the aorta and iliac vessels. No retroperitoneal adenopathy or mesenteric abnormalities are seen. Mild diverticuli are seen within the distal descending colon and sigmoid colon. However no inflammatory change to indicate diverticulitis is seen. 2 cysts are noted within the left ovary with the largest abnormality measuring 2.6 cm. No additional pelvic abnormalities are identified. No free fluid or inflammatory changes identified. Bone window settings were reviewed which show mild scoliosis within the spine. Disc space narrowing and vacuum phenomena is are seen within the L5-S1 disc space. Mild scattered endplate osteophytes are appreciated. 06/05/20 16:[address] Sullivan and he is aware that the CT of the abdomen did not shed any light on the source of potential infection. She will therefore be admitted to the med surgery floor until we can define what is making her ill. Second lactic acid actually went up from 2.3-2.9 in spite of nearly 1500 mils of fluid. IV will be opened up and be continued at normal saline at 999 mils per hour. Repeat lactic acid in 3 hours. Departure - Departure Time of Disposition: 16:44 Disposition: Admitted As Inpatient 66 Condition: Fair Clinical Impression: Fever of unknown origin, Benign familial tremor Leukocytosis Qualifiers: Leukocytosis type: bandemia Qualified Code(s): D72.825 - Bandemia - Discharge Information *PRESCRIPTION DRUG MONITORING PROGRAM REVIEWED*: Not Applicable *COPY OF PRESCRIPTION DRUG MONITORING REPORT IN PATIENT SHAHAB: Not Applicable Sepsis Event Note (ED) - Evaluation Sepsis Screening Result: No Definite Risk
[2020-06-05] MEDS: Acetaminophen 325 MG Tab PO PRN (11:57)
--- NOTE | 2020-06-05 12:25 | CR ---
Chest: Portable view of the chest was obtained. Comparison: Previous chest x-ray of 03/19/18. Heart size and mediastinum are normal. Lungs are clear with no acute parenchymal change. Prior left shoulder surgery is noted. Impression: 1. Nothing acute is seen on portable chest x-ray. Diagnostic code #2
[2020-06-05 12:26] LABS: HEMOGLOBIN A1C 7.3 %
[2020-06-05] MEDS ORDERED: cefTRIAXone 2 GM in Sodium Chloride 0.9% 100 ML IV ONE (13:14)
[2020-06-05] MEDS ORDERED: Diatrizoate Meglumine/Diatrizoate Sodium 37% 120 ML Bottle PO ONE (14:26)
[2020-06-05] MEDS ORDERED: Iopamidol 612 MG/ML 100 ML Bottle IVPUSH ONE (14:26)
[2020-06-05] MEDS ORDERED: Sodium Chloride 0.9% 10 ML Syringe FLUSH PRN (14:26)
--- NOTE | 2020-06-05 16:13 | CT ---
CT abdomen and pelvis Technique: Multiple axial sections were obtained from above the dome of the diaphragm inferiorly through the pubic symphysis. Intravenous and oral contrast was utilized. Delayed images were also obtained through the bladder. Reconstructed coronal and sagittal images were obtained. Comparison: Previous CT abdomen and pelvis study of 07/15/14. Findings: Visualized lung bases show nothing acute. Liver contains no focal parenchymal abnormality. Surgical clips are noted from prior cholecystectomy. Questionable esophageal wall thickening within the distal esophagus suggesting possibility of mild gastroesophageal reflux. Spleen appears normal. Adrenal glands show no nodule. No discrete pancreatic finding is seen. Kidneys show surrounding increased density within the fat which is similar to prior study and is chronic. Nonobstructing calculus is noted within the upper right kidney measuring 4-5 mm. No ureteral dilatation or ureteral stone is seen. Aorta shows no aneurysm. Atherosclerotic calcification is seen within the aorta and iliac vessels. No retroperitoneal adenopathy or mesenteric abnormalities are seen. Mild diverticuli are seen within the distal descending colon and sigmoid colon. No inflammatory change to indicate diverticulitis is seen. Two cysts are noted within the left ovary with largest abnormality measuring 2.6 cm. No additional pelvic abnormality is seen. No free fluid or inflammatory change is seen. Delayed images show contrast within the distal ureters and within the bladder. Bone window settings were reviewed which show mild scoliosis within the spine. Disc space narrowing and vacuum phenomena are seen within the L5-S1 disc. Mild scattered endplate osteophytes are seen. Impression: 1. Two cysts within the left ovary which are similar to previous study. 2. Questionable mild gastroesophageal reflux. 3. Small nonobstructing stone within the right kidney. 4. Other findings as noted above which are incidental. Nothing acute is appreciated on CT study of the abdomen and pelvis. Diagnostic code #2
[2020-06-05] MEDS ORDERED: Ondansetron 4 MG/2 ML SDV IV PRN (18:32)
[2020-06-05] MEDS ORDERED: Acetaminophen 650 MG Supp RECTAL PRN (18:32)
--- NOTE | 2020-06-05 19:51 | PCM.HP.2 ---
H&P History of Present Illness - General Date of Service: 06/05/20 Admit Problem/Dx: Admission Diagnosis/Problem Admission Diagnosis/Problem Fever - History of Present Illness Initial Comments - Free Text/Narative: 69-year-old female who presented to the emergency department with fever, chills. She stated she went to bed last night not feeling well with some nausea, vomiting, and diffuse abdominal cramping. She states she vomited approximately 10 times overnight. Emesis did not have any blood and was mainly bilious or dry heaves. She did take her Metformin this morning and started becoming lightheaded and dizzy. She states that she has a late sequelae from her COVID- 19 infection in December. She often will have episodes of not feeling well, diarrhea but not usually nausea or vomiting. She has previous cholecystectomy and appendectomy. When she arrived at the emergency department she had a tem perature of nine 9.4 with a follow-up temperature of nine 9.7. White count was as high as 17,000 and she had some lactic acidosis with a lactic acid of 2.3 and a repeat of 2.9 after liter of fluid. After the second liter of fluid her lactic acid did come down to 1.9. Patient has not received the Covid vaccination. C-reactive protein was up a little bit at 3.8. Since arrival in the emergency department she states she is feeling much better. She is no longer feeling feverish and she does not have any abdominal pain or nausea. She has received 2 L of IV fluids. Headache Pain Score (Numeric/FACES): 5 - Related Data Allergies/Adverse Reactions: Allergies Allergy/AdvReac Type Severity Reaction Status Date / Time adhesive Allergy Redness Verified 06/05/20 16:51 amantadine Allergy Other Verified 06/05/20 16:48 primidone Allergy Other Verified 06/05/20 16:49 propranolol Allergy Other Verified 06/05/20 16:48 sulfacetamide Allergy Rash Verified 06/05/20 16:50 carbamazepine [From Tegretol] AdvReac Hallucinati Verified 06/05/20 16:47 ons egg AdvReac Abdominal Verified 06/05/20 16:47 Cramps antidressant. AdvReac Change Uncoded 06/05/20 16:47 Mental Status Home Medications: Home Meds ALPRAZolam [Xanax] 1 mg PO QID PRN 05/01/14 [History] Cholecalciferol (Vitamin D3) [Vitamin D] 4,000 unit PO DAILY 05/01/14 [History] Estrogens, Conjugated [Premarin] 1.25 mg PO DAILY 05/01/14 [History] Fluticasone Propionate [Flonase] 2 spray NASBOTH DAILY 05/01/14 [History] Fluticasone Propionate [Flovent HFA] 2 puff INH BID 05/01/14 [History] Lisinopril 5 mg PO DAILY 05/01/14 [History] metFORMIN [Glucophage] 750 mg PO DAILY 05/01/14 [History] Aspirin 81 mg PO DAILY 09/28/16 [History] metFORMIN [Glucophage XR] 500 mg PO BEDTIME 09/28/16 [History] L.acidoph,Paracasei, B.lactis [Probiotic] 1 tab PO DAILY 06/27/17 [History] Past Medical History Cardiovascular History: Reports: High Cholesterol Respiratory History: Reports: Asthma, Bronchitis, Recurrent, COPD Gastrointestinal History: Reports: Celiac Disease Genitourinary History: Reports: Renal Calculus, Urinary Incontinence Other Musculoskeletal History: patient has history of heriditary neck tremors. Neurological History: Reports: Migraines, Other (See Below) Other Neuro History: Severe generalized familial tremors. Psychiatric History: Reports: Anxiety Endocrine/Metabolic History: Reports: Diabetes, Type II Oncologic (Cancer) History: Reports: Malignant Melanoma Dermatologic History: Reports: Benign Melanoma Other Dermatologic History: 7 years ago had area removed from back. - Infectious Disease History Infectious Disease History: Reports: Novel Coronavirus - Past Surgical History HEENT Surgical History: Reports: Tonsillectomy Cardiovascular Surgical History: Reports: None Respiratory Surgical History: Reports: None GI Surgical History: Reports: Appendectomy, Cholecystectomy Female Surgical History: Reports: Section, Hysterectomy, Salpingo- Oophorectomy Musculoskeletal Surgical History: Reports: Arthroscopic Procedure, ORIF Oncologic Surgical History: Reports: None Dermatological Surgical History: Reports: Skin Biopsy Social & Family History - Family History Family Medical History: No Pertinent Family History - Tobacco Use Tobacco Use Status *Q: Current Every Day Tobacco User Years of Tobacco use: 50 Packs/Tins Daily: 0 Used Tobacco, but Quit: No Month/Year Tobacco Last Used: yesturday Second Hand Smoke Exposure: No - Caffeine Use Caffeine Use: Reports: None - Alcohol Use Days Per Week of Alcohol Use: 1 Number of Drinks Per Day: 0 Total Drinks Per Week: 0 - Recreational Drug Use Recreational Drug Use: No - Living Situation & Occupation Living situation: Reports: , with Spouse Occupation: Retired H&P Review of Systems - Review of Systems: Review Of Systems: Comprehensive ROS is negative, except as noted in HPI. Exam - Exam Exam: See Below - Vital Signs Vital Signs: Last Vital Signs Temp 97.9 F 06/05/20 17:20 Pulse 97 06/05/20 17:20 Resp 14 06/05/20 17:20 BP 125/59 L 06/05/20 17:20 Pulse Ox 98 06/05/20 17:20 Weight: 159 lb 9.6 oz - Exam Quality Assessment: No: Supplemental Oxygen General: Alert, Oriented, 4 HEENT: Conjunctiva Clear, EACs Clear, Hearing Intact, Mucosa Moist & [place], Nor mal Nasal Septum Neck: Supple, Trachea Midline, 2 Lungs: Clear to Auscultation, Normal Respiratory Effort Cardiovascular: Regular Rate, Regular Rhythm GI/Abdominal Exam: Normal Bowel Sounds, Soft, Non-Tender, No Organomegaly, No Distention, No Abnormal Bruit, No Mass, Pelvis Stable Extremities: Normal Inspection, Normal Range of Motion, Non-Tender, No Pedal Edema, Normal Capillary Refill Peripheral Pulses: 2+: Posterior Tibial (L), Posterior Tibial (R), Dorsalis Pedis (L), Dorsalis Pedis (R) Skin: Warm, Dry, Intact Neuro Extensive - Mental Status: Alert, Oriented x3, Normal Mood/Affect, Normal Cognition Psychiatric: Alert, Normal Affect, Normal Mood - Patient Data Lab Results Last 24 hrs: Laboratory Results - last 24 hr 06/05/20 06/05/20 06/05/20 Range/Units 11:45 11:45 11:45 WBC 17.29 H (3.98-10.04) K/mm3 RBC 4.80 (3.98-5.22) M/mm3 Hgb 14.7 (11.2-15.7) gm/dl Hct 44.1 (34.1-44.9) % MCV 91.9 (79.4-94.8) fl MCH 30.6 (25.6-32.2) pg MCHC 33.3 (32.2-35.5) g/dl RDW Std Deviation 43.9 (36.4-46.3) fL Plt Count 371 H (182-369) K/mm3 MPV 9.2 L (9.4-12.3) fl Neutrophils % (Manual) 96 H (40-60) % Band Neutrophils % 0 (0-10) % Lymphocytes % (Manual) 4 L (20-40) % Atypical Lymphs % 0 % Monocytes % (Manual) 0 L (2-10) % Eosinophils % (Manual) 0 L (0.7-5.8) % Basophils % (Manual) 0 L (0.1-1.2) Platelet Estimate Adequate RBC Morph Comment Normal Sodium 139 (136-145) mEq/L Potassium 4.3 (3.5-5.1) mEq/L Chloride 100 (98-107) mEq/L Carbon Dioxide 25 (21-32) mEq/L Anion Gap 18.3 H (5-15) BUN 22 H (7-18) mg/dL Creatinine 0.8 (0.55-1.02) mg/dL Est Cr Clr Drug Dosing 54.90 mL/min Estimated GFR (MDRD) > 60 (>60) mL/min BUN/Creatinine Ratio 27.5 H (14-18) Glucose 209 H (80-115) mg/dL Hemoglobin A1c ( - 5.6) % Lactic Acid (0.4-2.0) mmol/L Calcium 8.3 L (8.5-10.1) mg/dL Magnesium 1.2 L (1.8-2.4) mg/dl Total Bilirubin 0.4 (0.2-1.0) mg/dL AST 11 L (15-37) U/L ALT 22 (14-59) U/L Alkaline Phosphatase 66 (46-116) U/L Troponin I < 0.017 (0.00-0.056) ng/mL C-Reactive Protein 3.8 H* (<1.0) mg/dL NT-Pro-B Natriuret Pep 57 (0-125) pg/mL Total Protein 7.2 (6.4-8.2) g/dl Albumin 3.2 L (3.4-5.0) g/dl Globulin 4.0 gm/dL Albumin/Globulin Ratio 0.8 L (1-2) Urine Color (Yellow) Urine Appearance (Clear) Urine pH (5.0-8.0) Ur Specific [place] (1.005-1.030) Urine Protein (Negative) Urine Glucose (UA) (Negative) Urine Ketones (Negative) Urine Occult Blood (Negative) Urine Nitrite (Negative) Urine Bilirubin (Negative) Urine Urobilinogen (0.2-1.0) Ur Leukocyte Esterase (Negative) Urine RBC (0-5) /hpf Urine WBC (0-5) /hpf Ur Epithelial Cells (0-5) /hpf Urine Bacteria (FEW) /hpf Urine Mucus (FEW) /hpf SARS-CoV-2 RNA (IFEANYI) (NEGATIVE) 06/05/20 06/05/20 06/05/20 Range/Units 11:45 11:55 13:15 WBC (3.98-10.04) K/mm3 RBC (3.98-5.22) M/mm3 Hgb (11.2-15.7) gm/dl Hct (34.1-44.9) % MCV (79.4-94.8) fl MCH (25.6-32.2) pg MCHC (32.2-35.5) g/dl RDW Std Deviation (36.4-46.3) fL Plt Count (182-369) K/mm3 MPV (9.4-12.3) fl Neutrophils % (Manual) (40-60) % Band Neutrophils % (0-10) % Lymphocytes % (Manual) (20-40) % Atypical Lymphs % % Monocytes % (Manual) (2-10) % Eosinophils % (Manual) (0.7-5.8) % Basophils % (Manual) (0.1-1.2) Platelet Estimate RBC Morph Comment Sodium (136-145) mEq/L Potassium (3.5-5.1) mEq/L Chloride (98-107) mEq/L Carbon Dioxide (21-32) mEq/L Anion Gap (5-15) BUN (7-18) mg/dL Creatinine (0.55-1.02) mg/dL Est Cr Clr Drug Dosing mL/min Estimated GFR (MDRD) (>60) mL/min BUN/Creatinine Ratio (14-18) Glucose (80-115) mg/dL Hemoglobin A1c 7.3 H ( - 5.6) % Lactic Acid 2.3 H* (0.4-2.0) mmol/L Calcium (8.5-10.1) mg/dL Magnesium (1.8-2.4) mg/dl Total Bilirubin (0.2-1.0) mg/dL AST (15-37) U/L ALT (14-59) U/L Alkaline Phosphatase (46-116) U/L Troponin I (0.00-0.056) ng/mL C-Reactive Protein (<1.0) mg/dL NT-Pro-B Natriuret Pep (0-125) pg/mL Total Protein (6.4-8.2) g/dl Albumin (3.4-5.0) g/dl Globulin gm/dL Albumin/Globulin Ratio (1-2) Urine Color Yellow (Yellow) Urine Appearance Clear (Clear) Urine pH 6.0 (5.0-8.0) Ur Specific [place] 1.025 (1.005-1.030) Urine Protein Negative (Negative) Urine Glucose (UA) Negative (Negative) Urine Ketones 2+ H (Negative) Urine Occult Blood Negative (Negative) Urine Nitrite Negative (Negative) Urine Bilirubin 1+ H (Negative) Urine Urobilinogen 0.2 (0.2-1.0) Ur Leukocyte Esterase Negative (Negative) Urine RBC 0-5 (0-5) /hpf Urine WBC 0-5 (0-5) /hpf Ur Epithelial Cells 5-10 H (0-5) /hpf Urine Bacteria Rare (FEW) /hpf Urine Mucus Few (FEW) /hpf SARS-CoV-2 RNA (IFEANYI) (NEGATIVE) 06/05/20 06/05/20 06/05/20 Range/Units 14:32 14:57 18:43 WBC (3.98-10.04) K/mm3 RBC (3.98-5.22) M/mm3 Hgb (11.2-15.7) gm/dl Hct (34.1-44.9) % MCV (79.4-94.8) fl MCH (25.6-32.2) pg MCHC (32.2-35.5) g/dl RDW Std Deviation (36.4-46.3) fL Plt Count (182-369) K/mm3 MPV (9.4-12.3) fl Neutrophils % (Manual) (40-60) % Band Neutrophils % (0-10) % Lymphocytes % (Manual) (20-40) % Atypical Lymphs % % Monocytes % (Manual) (2-10) % Eosinophils % (Manual) (0.7-5.8) % Basophils % (Manual) (0.1-1.2) Platelet Estimate RBC Morph Comment Sodium (136-145) mEq/L Potassium (3.5-5.1) mEq/L Chloride (98-107) mEq/L Carbon Dioxide (21-32) mEq/L Anion Gap (5-15) BUN (7-18) mg/dL Creatinine (0.55-1.02) mg/dL Est Cr Clr Drug Dosing mL/min Estimated GFR (MDRD) (>60) mL/min BUN/Creatinine Ratio (14-18) Glucose (80-115) mg/dL Hemoglobin A1c ( - 5.6) % Lactic Acid 2.9 H* 1.9 (0.4-2.0) mmol/L Calcium (8.5-10.1) mg/dL Magnesium (1.8-2.4) mg/dl Total Bilirubin (0.2-1.0) mg/dL AST (15-37) U/L ALT (14-59) U/L Alkaline Phosphatase (46-116) U/L Troponin I (0.00-0.056) ng/mL C-Reactive Protein (<1.0) mg/dL NT-Pro-B Natriuret Pep (0-125) pg/mL Total Protein (6.4-8.2) g/dl Albumin (3.4-5.0) g/dl Globulin gm/dL Albumin/Globulin Ratio (1-2) Urine Color (Yellow) Urine Appearance (Clear) Urine pH (5.0-8.0) Ur Specific [place] (1.005-1.030) Urine Protein (Negative) Urine Glucose (UA) (Negative) Urine Ketones (Negative) Urine Occult Blood (Negative) Urine Nitrite (Negative) Urine Bilirubin (Negative) Urine Urobilinogen (0.2-1.0) Ur Leukocyte Esterase (Negative) Urine RBC (0-5) /hpf Urine WBC (0-5) /hpf Ur Epithelial Cells (0-5) /hpf Urine Bacteria (FEW) /hpf Urine Mucus (FEW) /hpf SARS-CoV-2 RNA (IFEANYI) Negative (NEGATIVE) Result Diagrams: 06/05/20 11:45 06/05/20 11:45 Imaging Impressions Last 24 hrs: CT of the abdomen and pelvis 1. 2 cyst within the left ovary which are similar to previous study. 2. Questionable mild gastroesophageal reflux. 3. Small nonobstructing stone within the right kidney. 4. Other findings as noted above which are incidental. Nothing acute is a ppreciated on CT study of the abdomen and pelvis. Sepsis Event Note - Evaluation Sepsis Screening Result: Severe Sepsis Risk - Focused Exam Vital Signs: Vital Signs Temp Temp Pulse Pulse Resp BP BP 06/05/20 17:20 97.9 F 97 14 125/59 L 06/05/20 11:57 99.7 F 06/05/20 11:14 99.4 F 108 H 18 149/59 H Pulse Ox 06/05/20 17:20 98 06/05/20 11:57 06/05/20 11:14 96 - Problem List (1) Nausea and vomiting SNOMED Code(s): 11730795 ICD Code: R11.2 - NAUSEA WITH VOMITING, UNSPECIFIED Status: Acute Current Visit: Yes (2) Benign familial tremor SNOMED Code(s): 184262000 ICD Code: G25.0 - ESSENTIAL TREMOR Status: Acute Current Visit: Yes (3) Fever of unknown origin SNOMED Code(s): 0577617 ICD Code: R50.9 - FEVER, UNSPECIFIED Status: Acute Current Visit: Yes (4) Leukocytosis SNOMED Code(s): 370682035, 110555745 ICD Code: D72.829 - ELEVATED WHITE BLOOD CELL COUNT, UNSPECIFIED Status: Acute Current Visit: Yes Qualifiers: Leukocytosis type: bandemia Qualified Code(s): D72.825 - Bandemia (5) Abdominal pain SNOMED Code(s): 00318666 ICD Code: R10.9 - UNSPECIFIED ABDOMINAL PAIN Status: Acute Current Visit: No Problem List Initiated/Reviewed/Updated: Yes Orders Last 24hrs: Active Orders 24 hr Category Date Time Status Patient Status [ADT] Routine ADT 06/05/20 17:11 Active Oxygen Therapy [RC] PRN Care 06/05/20 18:32 Active Up ad [place] [RC] ASDIRECTED Care 06/05/20 18:31 Active VTE/DVT Education [RC] PER UNIT ROUTINE Care 06/05/20 18:31 Active Vital Signs [RC] Q4H Care 06/05/20 18:32 Active Regular Diet [DIET] Diet 06/06/20 Breakfast Active C-REACTIVE PROTEIN [CHEM] AM Lab 06/06/20 05:11 Ordered CBC WITH AUTO DIFF [HEME] AM Lab 06/06/20 05:11 Ordered COMPREHENSIVE METABOLIC PN,CMP [CHEM] AM Lab 06/06/20 05:11 Ordered CULTURE BLOOD [BC] Stat Lab 06/05/20 11:45 Received CULTURE BLOOD [BC] Stat Lab 06/05/20 11:55 Received MAGNESIUM [CHEM] AM Lab 06/06/20 05:11 Ordered PROCALCITONIN [REF] Routine Lab 06/05/20 10:45 Received Acetaminophen [TylenoL] Med 06/05/20 11:31 Active 650 mg PO Q4H PRN Acetaminophen [Tylenol] Med 06/05/20 18:32 Active 650 mg RECTAL Q4H PRN Enoxaparin [Lovenox] Med 06/06/20 09:00 Active 40 mg SUBCUT DAILY Ondansetron [Zofran] Med 06/05/20 18:32 Active 4 mg IV Q4H PRN Sodium Chloride 0.9% [Normal Saline] 1,000 ml Med 06/05/20 11:30 Active IV ASDIRECTED Sodium Chloride 0.9% [Normal Saline] 1,000 ml Med 06/05/20 17:00 Active IV ASDIRECTED Sodium Chloride 0.9% [Normal Saline] 1,000 ml Med 06/05/20 18:45 Active IV ASDIRECTED Sodium Chloride 0.9% [Saline Flush] Med 06/05/20 14:26 Active 10 ml FLUSH ONETIME PRN Blood Culture x2 Reflex Set [OM.PC] Stat Oth 06/05/20 11:30 Ordered Resuscitation Status Routine Resus Stat 06/05/20 18:31 Ordered Medication Orders Acetaminophen (Tylenol) 650 mg PO Q4H PRN PRN Reason: Pain Last Admin: 06/05/20 11:57 Dose: 650 mg Documented by: GARY Acetaminophen (Tylenol) 650 mg RECTAL Q4H PRN PRN Reason: Pain (mild 1-3) Enoxaparin Sodium (Lovenox) 40 mg SUBCUT DAILY MIA Sodium Chloride (Normal Saline) 1,000 mls @ 999 mls/hr IV ASDIRECTED [facility] Last Admin: 06/05/20 11:57 Dose: 999 mls/hr Documented by: GARY Sodium Chloride (Normal Saline) 1,000 mls @ 999 mls/hr IV ASDIRECTED [facility] Last Admin: 06/05/20 18:07 Dose: 999 mls/hr Documented by: TONY Sodium Chloride (Normal Saline) 1,000 mls @ 125 mls/hr IV ASDIRECTED [facility] Ondansetron HCl (Zofran) 4 mg IV Q4H PRN PRN Reason: Nausea/Vomiting Sodium Chloride (Saline Flush) 10 ml FLUSH ONETIME PRN PRN Reason: IV FLUSH Last Admin: 06/05/20 15:47 Dose: 10 ml Documented by: ALEXYS Assessment/Plan Comment:: Assessment 69-year-old female with history of prolonged symptoms from COVID-19 presents with low-grade fever, leukocytosis, abdominal pain nausea, vomiting. Gastroenteritis * Patient often gets diarrhea from her Covid symptoms but this was unusual secondary to the amount of nausea and vomiting. * Leukocytosis as high as a white count of 17,000 * C-reactive protein of 3.8 * Initial lactic acid of 2.3 increasing to 2.9 and currently 1.9 * Initial anion gap of 18.3 * Currently asymptomatic after eating salmon * Blood cultures done in the emergency department * CT of the abdomen and pelvis was negative * Chest x-ray negative for acute infiltrate or changes Prolonged Covid syndrome * Patient often has diarrhea mild abdominal discomfort. * Occasional chills and sweats. Last episode was last week. Type 2 diabetes * On metformin at home * Glucose 209 here which is unusual Plan * Observation on medical floor for IV hydration * Zofran for nausea and vomiting * Recheck labs in the morning * Follow blood cultures * Hold metformin * Sliding scale insulin with fingerstick blood sugars 4 times daily * VTE prophylaxis with Lovenox * CODE STATUS: Full code * Length of stay likely less than 48 hours - Mortality Measure Prognosis:: Good
[2020-06-05] MEDS: Sodium Chloride 0.9% 1,000 ML IV SCH (22:05)
[2020-06-06] MEDS: Sodium Chloride 0.9% 1,000 ML IV SCH (05:57)
[2020-06-06] MEDS: Acetaminophen 325 MG Tab PO PRN (05:58)
[2020-06-06 08:02] LABS: HEMOGLOBIN A1C 7.5 %
[2020-06-06] MEDS ORDERED: Aspirin 81 MG Tab.EC PO SCH (09:00)
[2020-06-06] MEDS ORDERED: Cholecalciferol (Vitamin D3) 25 MCG Tab PO SCH ×2 (09:00→21:00)
[2020-06-06] MEDS ORDERED: Enoxaparin 40 MG/0.4 ML Syringe SUBCUT SCH (09:00)
[2020-06-06] MEDS: Saccharomyces Boulardii (Probiotic) 250 MG Cap PO SCH ×2 (09:32→10:24)
[2020-06-06] MEDS ORDERED: Potassium Chloride 20 MEQ Tab.ER PO ONE (10:30)
[2020-06-06] MEDS ORDERED: Magnesium Sulfate/Water 2 GM/50 ML BAG IV ONE (10:30)
--- NOTE | 2020-06-06 11:50 | PCM.DCSUM1 ---
Discharge Summary - Hospital Course HPI Initial Comments: 69-year-old female who presented to the emergency department with fever, chills. She stated she went to bed last night not feeling well with some nausea, vomiting, and diffuse abdominal cramping. She states she vomited approximately 10 times overnight. Emesis did not have any blood and was mainly bilious or dry heaves. She did take her Metformin this morning and started becoming lightheaded and dizzy. She states that she has a late sequelae from her COVID- 19 infection in December. She often will have episodes of not feeling well, diarrhea but not usually nausea or vomiting. She has previous cholecystectomy and appendectomy. When she arrived at the emergency department she had a temperature of nine 9.4 with a follow-up temperature of nine 9.7. White count was as high as 17,000 and she had some lactic acidosis with a lactic acid of 2.3 and a repeat of 2.9 after liter of fluid. After the second liter of fluid her lactic acid did come down to 1.9. Patient has not received the Covid vaccination. C-reactive protein was up a little bit at 3.8. Since arrival in the emergency department she states she is feeling much better. She is no longer feeling feverish and she does not have any abdominal pain or nausea. She has received 2 L of IV fluids. Diagnosis: Stroke: No - Discharge Data Discharge Date: 06/06/20 (Admit date: 06/05/20) Discharge Disposition: Home, Self-Care 01 Condition: Good - Referral to Home Health Primary Care Physician: Kaiden Taofya Jr, MD - Discharge Diagnosis/Problem(s) (1) Benign familial tremor SNOMED Code(s): 661277665 ICD Code: G25.0 - ESSENTIAL TREMOR Status: Chronic Priority: Low Current Visit: No (2) Fever of unknown origin SNOMED Code(s): 8532002 ICD Code: R50.9 - FEVER, UNSPECIFIED Status: Resolved Priority: High Current Visit: Yes (3) Leukocytosis SNOMED Code(s): 781576830, 437014657 ICD Code: D72.829 - ELEVATED WHITE BLOOD CELL COUNT, UNSPECIFIED Status: Resolved Priority: High Current Visit: Yes Qualifiers: Leukocytosis type: bandemia Qualified Code(s): D72.825 - Bandemia (4) Nausea and vomiting SNOMED Code(s): 69995466 ICD Code: R11.2 - NAUSEA WITH VOMITING, UNSPECIFIED Status: Resolved Priority: High Current Visit: Yes Qualifiers: Vomiting type: unspecified Vomiting Intractability: unspecified Qualified Code(s): R11.2 - Nausea with vomiting, unspecified (5) Abdominal pain SNOMED Code(s): 78871437 ICD Code: R10.9 - UNSPECIFIED ABDOMINAL PAIN Status: Resolved Priority: Low Current Visit: No (6) Hypomagnesemia SNOMED Code(s): 472137757 ICD Code: E83.42 - HYPOMAGNESEMIA Status: Acute Priority: High Current Visit: Yes (7) Hypokalemia SNOMED Code(s): 63820970 ICD Code: E87.6 - HYPOKALEMIA Status: Acute Priority: High Current Visit: Yes (8) Gastroenteritis SNOMED Code(s): 30816177 ICD Code: K52.9 - NONINFECTIVE GASTROENTERITIS AND COLITIS, UNSPECIFIED Status: Resolved Priority: High Current Visit: Yes - Patient Summary/Data Labs Pending at D/C: None Recommended Follow-up Testing/Procedures: Follow-up with primary care provider as scheduled this . Hospital Course: Razia is a 69-year-old female who presented to ED on 06/05/2020 with a low-grade fever, leukocytosis, abdominal pain, nausea, and vomiting. She has a history of recent COVID-19 infection and reports she has been having issues for quite some time since being diagnosed. She states this was worse than usual as she was having nausea and vomiting of greater amounts. In the ED white count was noted to be 17,000 with a CRP of 3.8 and a lactic acid of 2.3. She was noted to have a anion gap of 18.3. Blood cultures were obtained and were negative. CT of the abdomen and pelvis was obtained and was negative. Chest x-ray and UA were obtained and was negative. She is given IV fluids and repeat lactic acid increased to 2.9. IV fluids continued and ultimately lactic acid decreased to 1.9. Patient does have baseline celiac disease and multiple drug allergies and drug sensitivities. She noted she had some diarrhea after being given oral contrast that she has had issues with this in the past. She reports she will occasionally get chills and sweats. She is a diabetic on Metformin. This was held and she was placed on sliding scale insulin. A1c was obtained and was 7.3, which the patient reports is right at her baseline. She was given IV hydration and her white count decreased to 8.65. CRP increased to 8.7. She was afebrile throughout her stay. Patient was able to eat without any difficulty and her abdominal pain had resolved. She had no complaints or concerns. Potassium was down to 3.5 and she was given one 40 mill equivalent dose of oral potassium. Magnesium was 1.2 on admission and this did improve to 1.4. She was supplemented with 2 g of IV magnesium prior to discharge. Home medications were continued. She was sent a prescription for p.o. Zofran as needed. She does have an appointment scheduled with her primary care provider this and she was advised to attend that appointment. She was advised to follow-up with her primary care provider return the emergency room should symptoms return or worsen. Discharged home today. - Patient Instructions Diet: Diabetic Diet Activity: As Tolerated Driving: Do Not Drive (today ) Showering/Bathing: May Shower Notify Provider of: Fever, Increased Pain, Nausea and/or Vomiting Other/Special Instructions: Follow-up with primary care provider as scheduled this , sooner if needed. Resume home medications as directed. You were prescribed zofran for nausea and vomiting. Take this as needed. Stay hydrated. Should symptoms return or worsen contact your primary mare provider or return to the emergency department. - Discharge Plan *PRESCRIPTION DRUG MONITORING PROGRAM REVIEWED*: Not Applicable *COPY OF PRESCRIPTION DRUG MONITORING REPORT IN PATIENT SHAHAB: Not Applicable Prescriptions/Med Rec: Ondansetron [Zofran ODT] 4 mg PO Q6H PRN #8 tab.dis PRN Reason: Nausea/Vomiting Home Medications: Home Meds ALPRAZolam [Xanax] 1 mg PO QID 05/01/14 [History] Cholecalciferol (Vitamin D3) [Vitamin D3] 2,000 unit PO DAILY 05/01/14 [History] Estrogens, Conjugated [Premarin] 1.25 mg PO QPM 05/01/14 [History] Fluticasone Propionate [Flonase] 2 spray NASBOTH DAILY 05/01/14 [History] Fluticasone Propionate [Flovent HFA] 2 puff INH BID 05/01/14 [History] Lisinopril 5 mg PO DAILY 05/01/14 [History] metFORMIN [Glucophage] 750 mg PO DAILY 05/01/14 [History] Aspirin 81 mg PO DAILY 09/28/16 [History] metFORMIN [Glucophage XR] 500 mg PO BEDTIME 09/28/16 [History] L.acidoph,Paracasei, B.lactis [Probiotic] 1 tab PO DAILY 06/27/17 [History] Cholecalciferol (Vitamin D3) [Vitamin D3] 1,000 units PO BEDTIME 06/05/20 [History] Cholestyramine/Sucrose [Cholestyramine] 1 scoop PO QAM 06/05/20 [History] Ondansetron [Zofran ODT] 4 mg PO Q6H PRN #8 tab.dis 06/06/20 [Rx] Oxygen Therapy Mode: Room Air Patient Handouts: Viral Gastroenteritis, Adult, [id number], Nausea and Vomiting, Adult, [id number] Forms: ED Department Discharge Referrals: Kaiden Tafoya Jr, MD [Primary Care Provider] - 06/08/20 2:15 pm (come 15 minutes prior to the appointment to register.) - Discharge Summary/Plan Comment DC Time >30 min.: No - General Info Date of Service: 06/06/20 Admission Dx/Problem (Free Text: Admission Diagnosis/Problem Admission Diagnosis/Problem Fever Functional Status: Reports: Pain Controlled, Tolerating Diet, Ambulating, Urinating. Denies: New Symptoms - Review of Systems General: Reports: No Symptoms. Denies: Fever, Weakness, Fatigue, Malaise, Chills HEENT: Reports: No Symptoms. Denies: Headaches, Sore Throat Pulmonary: Reports: No Symptoms. Denies: Shortness of Breath, Pleuritic Chest Pain, Cough, Sputum, Wheezing Cardiovascular: Reports: No Symptoms. Denies: Chest Pain, Palpitations, Dyspnea on Exertion, Edema Gastrointestinal: Reports: No Symptoms. Denies: Abdominal Pain, Constipation, Diarrhea, Nausea, Vomiting Genitourinary: Reports: No Symptoms. Denies: Pain Musculoskeletal: Reports: No Symptoms Skin: Reports: No Symptoms. Denies: Cyanosis Neurological: Reports: Tremors (chronic ). Denies: Confusion, Pre-Existing Deficit, Difficulty Walking, Weakness, Gait Disturbance Psychiatric: Reports: No Symptoms - Patient Data Vitals - Most Recent: Last Vital Signs Temp 97.9 F 06/06/20 07:23 Pulse 84 06/06/20 07:23 Resp 16 06/06/20 07:23 BP 125/66 06/06/20 07:23 Pulse Ox 93 L 06/06/20 07:23 Weight - Most Recent: 160 lb 8 oz I&O - Last 24 hours: Intake & Output 06/05/20 06/06/20 06/06/20 22:59 06:59 14:59 Intake Total 180 1700 460 Output Total 1700 Balance 180 0 460 Lab Results - Last 24 hrs: Laboratory Results - last 24 hr 06/05/20 06/05/20 06/05/20 Range/Units 11:45 11:45 11:45 WBC 17.29 H (3.98-10.04) K/mm3 RBC 4.80 (3.98-5.22) M/mm3 Hgb 14.7 (11.2-15.7) gm/dl Hct 44.1 (34.1-44.9) % MCV 91.9 (79.4-94.8) fl MCH 30.6 (25.6-32.2) pg MCHC 33.3 (32.2-35.5) g/dl RDW Std Deviation 43.9 (36.4-46.3) fL Plt Count 371 H (182-369) K/mm3 MPV 9.2 L (9.4-12.3) fl Neut % (Auto) (34.0-71.1) % Lymph % (Auto) (19.3-51.7) % [place] % (Auto) (4.7-12.5) % Eos % (Auto) (0.7-5.8) Baso % (Auto) (0.1-1.2) % Neut # (Auto) (1.56-6.13) K/mm3 Lymph # (Auto) (1.18-3.74) K/mm3 [place] # (Auto) (0.24-0.36) K/mm3 Eos # (Auto) (0.04-0.36) K/mm3 Baso # (Auto) (0.01-0.08) K/mm3 Neutrophils % (Manual) 96 H (40-60) % Band Neutrophils % 0 (0-10) % Lymphocytes % (Manual) 4 L (20-40) % Atypical Lymphs % 0 % Monocytes % (Manual) 0 L (2-10) % Eosinophils % (Manual) 0 L (0.7-5.8) % Basophils % (Manual) 0 L (0.1-1.2) Manual Slide Review Platelet Estimate Adequate RBC Morph Comment Normal Sodium 139 (136-145) mEq/L Potassium 4.3 (3.5-5.1) mEq/L Chloride 100 (98-107) mEq/L Carbon Dioxide 25 (21-32) mEq/L Anion Gap 18.3 H (5-15) BUN 22 H (7-18) mg/dL Creatinine 0.8 (0.55-1.02) mg/dL Est Cr Clr Drug Dosing 54.90 mL/min Estimated GFR (MDRD) > 60 (>60) mL/min BUN/Creatinine Ratio 27.5 H (14-18) Glucose 209 H (80-115) mg/dL POC Glucose (80-115) mg/dL Hemoglobin A1c ( - 5.6) % Lactic Acid (0.4-2.0) mmol/L Calcium 8.3 L (8.5-10.1) mg/dL Magnesium 1.2 L (1.8-2.4) mg/dl Total Bilirubin 0.4 (0.2-1.0) mg/dL AST 11 L (15-37) U/L ALT 22 (14-59) U/L Alkaline Phosphatase 66 (46-116) U/L Troponin I < 0.017 (0.00-0.056) ng/mL C-Reactive Protein 3.8 H* (<1.0) mg/dL NT-Pro-B Natriuret Pep 57 (0-125) pg/mL Total Protein 7.2 (6.4-8.2) g/dl Albumin 3.2 L (3.4-5.0) g/dl Globulin 4.0 gm/dL Albumin/Globulin Ratio 0.8 L (1-2) TSH 3rd Generation (0.358-3.74) uIU/mL Urine Color (Yellow) Urine Appearance (Clear) Urine pH (5.0-8.0) Ur Specific [place] (1.005-1.030) Urine Protein (Negative) Urine Glucose (UA) (Negative) Urine Ketones (Negative) Urine Occult Blood (Negative) Urine Nitrite (Negative) Urine Bilirubin (Negative) Urine Urobilinogen (0.2-1.0) Ur Leukocyte Esterase (Negative) Urine RBC (0-5) /hpf Urine WBC (0-5) /hpf Ur Epithelial Cells (0-5) /hpf Urine Bacteria (FEW) /hpf Urine Mucus (FEW) /hpf SARS-CoV-2 RNA (IFEANYI) (NEGATIVE) 06/05/20 06/05/20 06/05/20 Range/Units 11:45 11:55 13:15 WBC (3.98-10.04) K/mm3 RBC (3.98-5.22) M/mm3 Hgb (11.2-15.7) gm/dl Hct (34.1-44.9) % MCV (79.4-94.8) fl MCH (25.6-32.2) pg MCHC (32.2-35.5) g/dl RDW Std Deviation (36.4-46.3) fL Plt Count (182-369) K/mm3 MPV (9.4-12.3) fl Neut % (Auto) (34.0-71.1) % Lymph % (Auto) (19.3-51.7) % [place] % (Auto) (4.7-12.5) % Eos % (Auto) (0.7-5.8) Baso % (Auto) (0.1-1.2) % Neut # (Auto) (1.56-6.13) K/mm3 Lymph # (Auto) (1.18-3.74) K/mm3 [place] # (Auto) (0.24-0.36) K/mm3 Eos # (Auto) (0.04-0.36) K/mm3 Baso # (Auto) (0.01-0.08) K/mm3 Neutrophils % (Manual) (40-60) % Band Neutrophils % (0-10) % Lymphocytes % (Manual) (20-40) % Atypical Lymphs % % Monocytes % (Manual) (2-10) % Eosinophils % (Manual) (0.7-5.8) % Basophils % (Manual) (0.1-1.2) Manual Slide Review Platelet Estimate RBC Morph Comment Sodium (136-145) mEq/L Potassium (3.5-5.1) mEq/L Chloride (98-107) mEq/L Carbon Dioxide (21-32) mEq/L Anion Gap (5-15) BUN (7-18) mg/dL Creatinine (0.55-1.02) mg/dL Est Cr Clr Drug Dosing mL/min Estimated GFR (MDRD) (>60) mL/min BUN/Creatinine Ratio (14-18) Glucose (80-115) mg/dL POC Glucose (80-115) mg/dL Hemoglobin A1c 7.3 H ( - 5.6) % Lactic Acid 2.3 H* (0.4-2.0) mmol/L Calcium (8.5-10.1) mg/dL Magnesium (1.8-2.4) mg/dl Total Bilirubin (0.2-1.0) mg/dL AST (15-37) U/L ALT (14-59) U/L Alkaline Phosphatase (46-116) U/L Troponin I (0.00-0.056) ng/mL C-Reactive Protein (<1.0) mg/dL NT-Pro-B Natriuret Pep (0-125) pg/mL Total Protein (6.4-8.2) g/dl Albumin (3.4-5.0) g/dl Globulin gm/dL Albumin/Globulin Ratio (1-2) TSH 3rd Generation (0.358-3.74) uIU/mL Urine Color Yellow (Yellow) Urine Appearance Clear (Clear) Urine pH 6.0 (5.0-8.0) Ur Specific [place] 1.025 (1.005-1.030) Urine Protein Negative (Negative) Urine Glucose (UA) Negative (Negative) Urine Ketones 2+ H (Negative) Urine Occult Blood Negative (Negative) Urine Nitrite Negative (Negative) Urine Bilirubin 1+ H (Negative) Urine Urobilinogen 0.2 (0.2-1.0) Ur Leukocyte Esterase Negative (Negative) Urine RBC 0-5 (0-5) /hpf Urine WBC 0-5 (0-5) /hpf Ur Epithelial Cells 5-10 H (0-5) /hpf Urine Bacteria Rare (FEW) /hpf Urine Mucus Few (FEW) /hpf SARS-CoV-2 RNA (IFEANYI) (NEGATIVE) 02/22/21 02/22/21 02/22/21 Range/Units 14:32 14:57 18:43 WBC (3.98-10.04) K/mm3 RBC (3.98-5.22) M/mm3 Hgb (11.2-15.7) gm/dl Hct (34.1-44.9) % MCV (79.4-94.8) fl MCH (25.6-32.2) pg MCHC (32.2-35.5) g/dl RDW Std Deviation (36.4-46.3) fL Plt Count (182-369) K/mm3 MPV (9.4-12.3) fl Neut % (Auto) (34.0-71.1) % Lymph % (Auto) (19.3-51.7) % [place] % (Auto) (4.7-12.5) % Eos % (Auto) (0.7-5.8) Baso % (Auto) (0.1-1.2) % Neut # (Auto) (1.56-6.13) K/mm3 Lymph # (Auto) (1.18-3.74) K/mm3 [place] # (Auto) (0.24-0.36) K/mm3 Eos # (Auto) (0.04-0.36) K/mm3 Baso # (Auto) (0.01-0.08) K/mm3 Neutrophils % (Manual) (40-60) % Band Neutrophils % (0-10) % Lymphocytes % (Manual) (20-40) % Atypical Lymphs % % Monocytes % (Manual) (2-10) % Eosinophils % (Manual) (0.7-5.8) % Basophils % (Manual) (0.1-1.2) Manual Slide Review Platelet Estimate RBC Morph Comment Sodium (136-145) mEq/L Potassium (3.5-5.1) mEq/L Chloride (98-107) mEq/L Carbon Dioxide (21-32) mEq/L Anion Gap (5-15) BUN (7-18) mg/dL Creatinine (0.55-1.02) mg/dL Est Cr Clr Drug Dosing mL/min Estimated GFR (MDRD) (>60) mL/min BUN/Creatinine Ratio (14-18) Glucose (80-115) mg/dL POC Glucose (80-115) mg/dL Hemoglobin A1c ( - 5.6) % Lactic Acid 2.9 H* 1.9 (0.4-2.0) mmol/L Calcium (8.5-10.1) mg/dL Magnesium (1.8-2.4) mg/dl Total Bilirubin (0.2-1.0) mg/dL AST (15-37) U/L ALT (14-59) U/L Alkaline Phosphatase (46-116) U/L Troponin I (0.00-0.056) ng/mL C-Reactive Protein (<1.0) mg/dL NT-Pro-B Natriuret Pep (0-125) pg/mL Total Protein (6.4-8.2) g/dl Albumin (3.4-5.0) g/dl Globulin gm/dL Albumin/Globulin Ratio (1-2) TSH 3rd Generation (0.358-3.74) uIU/mL Urine Color (Yellow) Urine Appearance (Clear) Urine pH (5.0-8.0) Ur Specific [place] (1.005-1.030) Urine Protein (Negative) Urine Glucose (UA) (Negative) Urine Ketones (Negative) Urine Occult Blood (Negative) Urine Nitrite (Negative) Urine Bilirubin (Negative) Urine Urobilinogen (0.2-1.0) Ur Leukocyte Esterase (Negative) Urine RBC (0-5) /hpf Urine WBC (0-5) /hpf Ur Epithelial Cells (0-5) /hpf Urine Bacteria (FEW) /hpf Urine Mucus (FEW) /hpf SARS-CoV-2 RNA (IFEANYI) Negative (NEGATIVE) 06/05/20 06/06/20 06/06/20 Range/Units 20:47 05:09 05:09 WBC 8.65 (3.98-10.04) K/mm3 RBC 4.42 (3.98-5.22) M/mm3 Hgb 13.5 (11.2-15.7) gm/dl Hct 41.5 (34.1-44.9) % MCV 93.9 (79.4-94.8) fl MCH 30.5 (25.6-32.2) pg MCHC 32.5 (32.2-35.5) g/dl RDW Std Deviation 45.0 (36.4-46.3) fL Plt Count 372 H (182-369) K/mm3 MPV 9.7 (9.4-12.3) fl Neut % (Auto) 69.2 (34.0-71.1) % Lymph % (Auto) 21.3 (19.3-51.7) % [place] % (Auto) 7.5 (4.7-12.5) % Eos % (Auto) 1.6 (0.7-5.8) Baso % (Auto) 0.2 (0.1-1.2) % Neut # (Auto) 5.98 (1.56-6.13) K/mm3 Lymph # (Auto) 1.84 (1.18-3.74) K/mm3 [place] # (Auto) 0.65 H (0.24-0.36) K/mm3 Eos # (Auto) 0.14 (0.04-0.36) K/mm3 Baso # (Auto) 0.02 (0.01-0.08) K/mm3 Neutrophils % (Manual) (40-60) % Band Neutrophils % (0-10) % Lymphocytes % (Manual) (20-40) % Atypical Lymphs % % Monocytes % (Manual) (2-10) % Eosinophils % (Manual) (0.7-5.8) % Basophils % (Manual) (0.1-1.2) Manual Slide Review Not Reportable Platelet Estimate RBC Morph Comment Sodium 142 (136-145) mEq/L Potassium 3.5 (3.5-5.1) mEq/L Chloride 105 (98-107) mEq/L Carbon Dioxide 25 (21-32) mEq/L Anion Gap 15.5 H (5-15) BUN 10 (7-18) mg/dL Creatinine 0.8 (0.55-1.02) mg/dL Est Cr Clr Drug Dosing 54.90 mL/min Estimated GFR (MDRD) > 60 (>60) mL/min BUN/Creatinine Ratio 12.5 L (14-18) Glucose 135 H (80-115) mg/dL POC Glucose 146 H (80-115) mg/dL Hemoglobin A1c ( - 5.6) % Lactic Acid (0.4-2.0) mmol/L Calcium 7.7 L (8.5-10.1) mg/dL Magnesium 1.4 L (1.8-2.4) mg/dl Total Bilirubin 0.2 (0.2-1.0) mg/dL AST 17 (15-37) U/L ALT 20 (14-59) U/L Alkaline Phosphatase 59 (46-116) U/L Troponin I (0.00-0.056) ng/mL C-Reactive Protein 8.7 H* (<1.0) mg/dL NT-Pro-B Natriuret Pep (0-125) pg/mL Total Protein 6.3 L (6.4-8.2) g/dl Albumin 2.9 L (3.4-5.0) g/dl Globulin 3.4 gm/dL Albumin/Globulin Ratio 0.9 L (1-2) TSH 3rd Generation 1.429 (0.358-3.74) uIU/mL Urine Color (Yellow) Urine Appearance (Clear) Urine pH (5.0-8.0) Ur Specific [place] (1.005-1.030) Urine Protein (Negative) Urine Glucose (UA) (Negative) Urine Ketones (Negative) Urine Occult Blood (Negative) Urine Nitrite (Negative) Urine Bilirubin (Negative) Urine Urobilinogen (0.2-1.0) Ur Leukocyte Esterase (Negative) Urine RBC (0-5) /hpf Urine WBC (0-5) /hpf Ur Epithelial Cells (0-5) /hpf Urine Bacteria (FEW) /hpf Urine Mucus (FEW) /hpf SARS-CoV-2 RNA (IFEANYI) (NEGATIVE) 06/06/20 06/06/20 Range/Units 05:09 06:27 WBC (3.98-10.04) K/mm3 RBC (3.98-5.22) M/mm3 Hgb (11.2-15.7) gm/dl Hct (34.1-44.9) % MCV (79.4-94.8) fl MCH (25.6-32.2) pg MCHC (32.2-35.5) g/dl RDW Std Deviation (36.4-46.3) fL Plt Count (182-369) K/mm3 MPV (9.4-12.3) fl Neut % (Auto) (34.0-71.1) % Lymph % (Auto) (19.3-51.7) % [place] % (Auto) (4.7-12.5) % Eos % (Auto) (0.7-5.8) Baso % (Auto) (0.1-1.2) % Neut # (Auto) (1.56-6.13) K/mm3 Lymph # (Auto) (1.18-3.74) K/mm3 [place] # (Auto) (0.24-0.36) K/mm3 Eos # (Auto) (0.04-0.36) K/mm3 Baso # (Auto) (0.01-0.08) K/mm3 Neutrophils % (Manual) (40-60) % Band Neutrophils % (0-10) % Lymphocytes % (Manual) (20-40) % Atypical Lymphs % % Monocytes % (Manual) (2-10) % Eosinophils % (Manual) (0.7-5.8) % Basophils % (Manual) (0.1-1.2) Manual Slide Review Platelet Estimate RBC Morph Comment Sodium (136-145) mEq/L Potassium (3.5-5.1) mEq/L Chloride (98-107) mEq/L Carbon Dioxide (21-32) mEq/L Anion Gap (5-15) BUN (7-18) mg/dL Creatinine (0.55-1.02) mg/dL Est Cr Clr Drug Dosing mL/min Estimated GFR (MDRD) (>60) mL/min BUN/Creatinine Ratio (14-18) Glucose (80-115) mg/dL POC Glucose 136 H (80-115) mg/dL Hemoglobin A1c 7.5 H ( - 5.6) % Lactic Acid (0.4-2.0) mmol/L Calcium (8.5-10.1) mg/dL Magnesium (1.8-2.4) mg/dl Total Bilirubin (0.2-1.0) mg/dL AST (15-37) U/L ALT (14-59) U/L Alkaline Phosphatase (46-116) U/L Troponin I (0.00-0.056) ng/mL C-Reactive Protein (<1.0) mg/dL NT-Pro-B Natriuret Pep (0-125) pg/mL Total Protein (6.4-8.2) g/dl Albumin (3.4-5.0) g/dl Globulin gm/dL Albumin/Globulin Ratio (1-2) TSH 3rd Generation (0.358-3.74) uIU/mL Urine Color (Yellow) Urine Appearance (Clear) Urine pH (5.0-8.0) Ur Specific [place] (1.005-1.030) Urine Protein (Negative) Urine Glucose (UA) (Negative) Urine Ketones (Negative) Urine Occult Blood (Negative) Urine Nitrite (Negative) Urine Bilirubin (Negative) Urine Urobilinogen (0.2-1.0) Ur Leukocyte Esterase (Negative) Urine RBC (0-5) /hpf Urine WBC (0-5) /hpf Ur Epithelial Cells (0-5) /hpf Urine Bacteria (FEW) /hpf Urine Mucus (FEW) /hpf SARS-CoV-2 RNA (IFEANYI) (NEGATIVE) Med Orders - Current: Current Medications Acetaminophen (Tylenol) 650 mg PO Q4H PRN PRN Reason: Pain Last Admin: 06/06/20 05:58 Dose: 650 mg Documented by: Acetaminophen (Tylenol) 650 mg RECTAL Q4H PRN PRN Reason: Pain (mild 1-3) Aspirin (Halfprin) 81 mg PO DAILY [facility] Last Admin: 06/06/20 09:32 Dose: Not Given Documented by: Cholecalciferol (Vitamin D3) 50 mcg PO DAILY [facility] Last Admin: 06/06/20 09:33 Dose: Not Given Documented by: Cholecalciferol (Vitamin D3) 25 mcg PO BEDTIME [facility] Cholestyramine Resin (Cholestyramine Packet) 4 gm PO QAM [facility] Enoxaparin Sodium (Lovenox) 40 mg SUBCUT DAILY [facility] Last Admin: 06/06/20 09:55 Dose: Not Given Documented by: Sodium Chloride (Normal Saline) 1,000 mls @ 125 mls/hr IV ASDIRECTED [facility] Last Admin: 06/06/20 05:57 Dose: 125 mls/hr Documented by: Magnesium Sulfate (Magnesium Sulfate In Water 2 Gm/50 Ml) 2 gm in 50 mls @ 25 mls/hr IV ONETIME ONE Stop: 06/06/20 12:29 Insulin Human Lispro (Humalog) 0 unit SUBCUT QIDACANDBED [facility]; Protocol Last Admin: 06/06/20 06:30 Dose: Not Given Documented by: Alprazolam [Xanax] 1 (Mg Ptom) 0 mg PO 0800,1200,1600,2100 [facility] Estrogens, Conjugated 1.25 Mg Tab Ptom 0 mg PO QPM [facility] Fluticasone Propionate [Flonase] Ptom 0 spray .XX DAILY [facility] Fluticasone Propionate 220 Mcg/Act [Flovent Hfa] Ptom 0 puff INH BID [facility] Lisinopril [ Lisinopril] 5 Mg Tab Ptom 0 mg PO DAILY [facility] Ondansetron HCl (Zofran) 4 mg IV Q4H PRN PRN Reason: Nausea/Vomiting Saccharomyces Boulardii (Florastor) 250 mg PO DAILY [facility] Last Admin: 06/06/20 10:24 Dose: Not Given Documented by: Sodium Chloride (Saline Flush) 10 ml FLUSH ONETIME PRN PRN Reason: IV FLUSH Last Admin: 06/05/20 15:47 Dose: 10 ml Documented by: Discontinued Medications Diatrizoate Meglum/Diatrizoate Sod (Gastrografin 37%) 120 ml PO ONETIME ONE Stop: 06/05/20 14:27 Last Admin: 06/05/20 15:47 Dose: 120 ml Documented by: Sodium Chloride (Normal Saline) 1,000 mls @ 999 mls/hr IV ASDIRECTED [facility] Last Admin: 06/05/20 11:57 Dose: 999 mls/hr Documented by: Sodium Chloride (Normal Saline) 1,000 mls @ 250 mls/hr IV ASDIRECTED [facility] Last Admin: 06/05/20 13:23 Dose: 250 mls/hr Documented by: Ceftriaxone Sodium 2 gm/ (Sodium Chloride) 100 mls @ 200 mls/hr IV ONETIME ONE Stop: 06/05/20 13:43 Last Admin: 06/05/20 13:23 Dose: 200 mls/hr Documented by: Sodium Chloride (Normal Saline) 1,000 mls @ 999 mls/hr IV ASDIRECTED [facility] Last Admin: 06/05/20 18:07 Dose: 999 mls/hr Documented by: Iopamidol (Isovue-300 (61%)) 100 ml IVPUSH ONETIME ONE Stop: 06/05/20 14:27 Last Admin: 06/05/20 15:47 Dose: 100 ml Documented by: Metoclopramide HCl (Reglan) 7.5 mg IVPUSH ONETIME ONE Stop: 06/05/20 11:29 Last Admin: 06/05/20 11:57 Dose: 7.5 mg Documented by: Potassium Chloride (Klor-Con M20) 40 meq PO ONETIME ONE Stop: 06/06/20 10:31 - Exam Quality Assessment: Reports: DVT Prophylaxis. Denies: Supplemental Oxygen, Urine Catheter General: Reports: Alert, Oriented, Cooperative, No Acute Distress HEENT: Reports: Pupils Equal, Pupils Reactive, Mucous Membr. Moist/[place] Neck: Reports: Supple, Trachea Midline Lungs: Reports: Clear to Auscultation, Normal Respiratory Effort Cardiovascular: Reports: Regular Rate, Regular Rhythm GI/Abdominal Exam: Normal Bowel Sounds, Soft, Non-Tender, No Distention (Female) Exam: Deferred Rectal (Female) Exam: Deferred Back Exam: Reports: Normal Inspection, Full Range of Motion Extremities: Normal Inspection, Normal Range of Motion, Non-Tender, No Pedal Edema, Normal Capillary Refill Skin: Reports: Warm, Dry, Intact Neurological: Reports: No New Focal Deficit Psy/Mental Status: Reports: Alert, Normal Affect, Normal Mood
[2020-06-06] MEDS ORDERED: FLUTICASONE PROPIONATE INH SCH (12:00)
[2020-06-06] MEDS ORDERED: ALPRAZOLAM 1 MG PO SCH (12:00)
[2020-06-06] MEDS ORDERED: LISINOPRIL 5 MG PO SCH (12:00)
[2020-06-06] MEDS ORDERED: FLUTICASONE PROPIONATE SCH (12:00)
[2020-06-06 12:10] VITALS: BP 128/85; PULSE 73
[2020-06-06] MEDS ORDERED: ESTROGENS CONJUGATED 1.25 MG PO SCH (18:00)
[2020-06-07] MEDS ORDERED: Cholestyramine/Sucrose Powder 4 GM Packet PO SCH (08:00)
== END 2020-06-06 14:25 | disposition home or self-care (01) ==
LOC: JD.ED 10:52 → INTOOBSV 16:50 → UNDOADMOB 16:50 → JD.MS 16:50
PROVIDERS: ADMIT Family Medicine; ATTEND Family Medicine
DX: R50.9 Fever, unspecified (principal); G25.0 Essential tremor; K52.9 Noninfective gastroenteritis and colitis, unspecified; E83.42 Hypomagnesemia; E87.6 Hypokalemia; D72.829 Elevated white blood cell count, unspecified; E11.9 Type 2 diabetes mellitus without complications; J44.9 Chronic obstructive pulmonary disease, unspecified; N83.202 Unspecified ovarian cyst, left side; N20.0 Calculus of kidney; F17.210 Nicotine dependence, cigarettes, uncomplicated; Z20.822 Contact with and (suspected) exposure to COVID-19; Z79.84 Long term (current) use of oral hypoglycemic drugs; Z79.82 Long term (current) use of aspirin; Z86.16 Personal history of COVID-19; Z90.49 Acquired absence of other specified parts of digestive tract; Z79.899 Other long term (current) drug therapy; Z91.09 Other allergy status, other than to drugs and biological substances; Z88.8 Allergy status to other drugs, medicaments and biological substances; Z88.2 Allergy status to sulfonamides; Z91.012 Allergy to eggs; Z88.4 Allergy status to anesthetic agent; Z79.890 Hormone replacement therapy; Z98.890 Other specified postprocedural states
CPT/HCPCS: 36415; 71045; 74177; 80053; 81001; 82962; 83036; 83605; 83735; 83880; 84145; 84443; 84484; 85007; 85025; 85027; 86140; 87040; 93005; 96365; 96366; 96367; 96375; 99285; A9270; G0378; J0696; J1815; J2765; J3475; J7030; Q9963; Q9967; U0002; 93010; 99217; 99219

== ENCOUNTER 2020-07-02 16:34 | Emergency (ER) | payer MEDICARE, OTHER ==
[2020-07-02 16:55] VITALS: BP 138/87; PULSE 99
[2020-07-02] MEDS ORDERED: Sodium Chloride 0.9% 10 ML Syringe FLUSH PRN (17:06)
[2020-07-02] MEDS ORDERED: Sodium Chloride 0.9% 1,000 ML IV ONE (17:34)
[2020-07-02] MEDS ORDERED: Magnesium Sulfate/Water 4 GM in Premix Bag 1 BAG IV ONE (17:34)
--- NOTE | 2020-07-02 17:39 | EDM.PDOC ---
ED HPI GENERAL MEDICAL PROBLEM - General Chief Complaint: Gastrointestinal Problem Stated Complaint: DIZZY/DIAHERRA Time Seen by Provider: 07/02/20 16:45 Source of Information: Reports: Patient History Limitations: Reports: No Limitations - History of Present Illness INITIAL COMMENTS - FREE TEXT/NARRATIVE: 69-year-old female presents with a 3-day history of diarrhea, weakness, and decreased appetite. The patient states that she was recently hospitalized on 05 June 2020 with similar symptoms. She states that they questioned if she had sepsis however she was discharged home the following day. She states that she felt well after this hospitalization and had her Covid vaccine on 06/23/2020 and felt great the next day. However after that she started having decreased a ppetite, generalized fatigue, and then developed diarrhea over the course of the past 3 days. She states she has 3-6 diarrhea stools daily. She denies abdominal pain, nausea, vomiting, fever or chills. However she states that she really has not been able to eat anything as she has no appetite. She has been attempting to increase her water intake however. Patient also tells me that she has got a history of low magnesium levels for which she normally takes milk of magnesia to raise her levels however has not taken this over the past 3 days due to the fact that she has had diarrhea. - Related Data Allergies Allergy/AdvReac Type Severity Reaction Status Date / Time adhesive Allergy Redness Verified 07/02/20 16:50 amantadine Allergy Other Verified 07/02/20 16:50 gluten Allergy Abdominal Verified 07/02/20 16:50 Cramps primidone Allergy Other Verified 07/02/20 16:50 propranolol Allergy Other Verified 07/02/20 16:50 sulfacetamide Allergy Rash Verified 07/02/20 16:50 carbamazepine [From Tegretol] AdvReac Hallucinati Verified 07/02/20 16:50 ons egg AdvReac Abdominal Verified 07/02/20 16:50 Cramps antidressant. AdvReac Change Uncoded 07/02/20 16:50 Mental Status Home Meds: Home Meds ALPRAZolam [Xanax] 1 mg PO QID 05/01/14 [History] Cholecalciferol (Vitamin D3) [Vitamin D3] 2,000 unit PO DAILY 05/01/14 [History] Estrogens, Conjugated [Premarin] 1.25 mg PO QPM 05/01/14 [History] Fluticasone Propionate [Flonase] 2 spray NASBOTH DAILY 05/01/14 [History] Fluticasone Propionate [Flovent HFA] 2 puff INH BID 05/01/14 [History] Lisinopril 5 mg PO DAILY 05/01/14 [History] metFORMIN [Glucophage] 750 mg PO DAILY 05/01/14 [History] Aspirin 81 mg PO DAILY 09/28/16 [History] metFORMIN [Glucophage XR] 500 mg PO BEDTIME 09/28/16 [History] L.acidoph,Paracasei, B.lactis [Probiotic] 1 tab PO DAILY 06/27/17 [History] Cholecalciferol (Vitamin D3) [Vitamin D3] 1,000 units PO BEDTIME 06/05/20 [History] Cholestyramine/Sucrose [Cholestyramine] 1 scoop PO QAM 06/05/20 [History] Ondansetron [Zofran ODT] 4 mg PO Q6H PRN #8 tab.dis 06/06/20 [Rx] Past Medical History Cardiovascular History: Reports: High Cholesterol Respiratory History: Reports: Asthma, Bronchitis, Recurrent, COPD Gastrointestinal History: Reports: Celiac Disease Genitourinary History: Reports: Renal Calculus, Urinary Incontinence Other Musculoskeletal History: patient has history of heriditary neck tremors. Neurological History: Reports: Migraines, Other (See Below) Other Neuro History: Severe generalized familial tremors. Psychiatric History: Reports: Anxiety Endocrine/Metabolic History: Reports: Diabetes, Type II Oncologic (Cancer) History: Reports: Malignant Melanoma Dermatologic History: Reports: Benign Melanoma Other Dermatologic History: 7 years ago had area removed from back. - Infectious Disease History Infectious Disease History: Reports: Novel Coronavirus - Past Surgical History HEENT Surgical History: Reports: Tonsillectomy Cardiovascular Surgical History: Reports: None Respiratory Surgical History: Reports: None GI Surgical History: Reports: Appendectomy, Cholecystectomy Female Surgical History: Reports: Section, Hysterectomy, Salpingo- Oophorectomy Musculoskeletal Surgical History: Reports: Arthroscopic Procedure, ORIF Oncologic Surgical History: Reports: None Dermatological Surgical History: Reports: Skin Biopsy Social & Family History - Family History Family Medical History: No Pertinent Family History - Tobacco Use Tobacco Use Status *Q: Current Every Day Tobacco User Years of Tobacco use: 50 Packs/Tins Daily: 0.1 - Caffeine Use Caffeine Use: Reports: None - Living Situation & Occupation Living situation: Reports: , with Spouse Occupation: Retired ED ROS GENERAL - Review of Systems Review Of Systems: See Below Constitutional: Reports: Fatigue. Denies: Fever, Chills, Diaphoresis HEENT: Reports: No Symptoms Respiratory: Reports: No Symptoms Cardiovascular: Reports: No Symptoms Endocrine: Reports: Fatigue GI/Abdominal: Reports: Diarrhea, Decreased Appetite. Denies: Abdominal Pain, Constipation, Nausea, Vomiting : Reports: No Symptoms Musculoskeletal: Reports: No Symptoms Skin: Reports: No Symptoms Neurological: Reports: No Symptoms Psychiatric: Reports: No Symptoms Hematologic/Lymphatic: Reports: No Symptoms Immunologic: Reports: No Symptoms ED EXAM, GI/ABD - Physical Exam Exam: See Below Exam Limited By: No Limitations General Appearance: Alert, WD/WN, No Apparent Distress Ears: Normal External Exam, Hearing Grossly Normal Nose: Normal Inspection Throat/Mouth: Normal Inspection, Normal Lips, Normal Voice, No Airway Compromise Head: Atraumatic, Normocephalic Neck: Normal Inspection, Supple, Non-Tender, Full Range of Motion Respiratory/Chest: No Respiratory Distress, Lungs Clear, Normal Breath Sounds, No Accessory Muscle Use, Chest Non-Tender Cardiovascular: Normal Peripheral Pulses, Regular Rate, Rhythm, No Edema, No Murmur GI/Abdominal Exam: Normal Bowel Sounds, Soft, Non-Tender, No Distention (Female) Exam: Deferred Rectal (Female) Exam: Deferred Back Exam: Normal Inspection, Full Range of Motion Extremities: Normal Inspection, Normal Range of Motion, Non-Tender, No Pedal Edema, Normal Capillary Refill Neurological: Alert, Oriented, Normal Cognition Psychiatric: Normal Affect, Normal Mood Skin Exam: Warm, Dry, Intact, Normal Color, No Rash Lymphatic: No Adenopathy Course - Vital Signs Text/Narrative:: 69-year-old female with a 3-day history of diarrhea, decreased appetite and generalized fatigue. States this started 3 days ago and has been having 3-6 diarrhea stools daily. Has had no appetite and has been unable to eat much however denies any nausea or vomiting associated with this. Denies any abdominal pain. Denies any issues with voiding, dysuria, or frequency. Patient does have a history of hypomagnesemia and has not been taking her magnesium supplementation over the past 3 days as she takes milk of magnesia and this also would compound her diarrhea symptoms. Upon assessment the patient is tremulous however she does admit to having essential tremors. Patient is not febrile. I have ordered labs, and a flat and upright of the abdomen. Last Recorded V/S: Last Vital Signs Temp 97.6 F 07/02/20 16:44 Pulse 99 07/02/20 16:44 Resp 16 07/02/20 16:44 BP 138/87 07/02/20 16:44 Pulse Ox 100 07/02/20 16:44 - Orders/Labs/Meds Orders: Active Orders 24 hr Category Date Time Status Abdomen 2V AP Flat Upright [CR] Stat Exams 07/02/20 17:06 Taken C DIFFICILE PCR W/REFLEX [MOLEC] Stat Lab 07/02/20 17:50 Ordered CULTURE URINE [RM] Stat Lab 07/02/20 17:45 Received STOOL CULTURE/SHIGA TOXIN [MREF] Stat Lab 07/02/20 17:50 Ordered Sodium Chloride 0.9% [Saline Flush] Med 07/02/20 17:06 Active 10 ml FLUSH ASDIRECTED PRN Saline Lock Insert [OM.PC] Stat Oth 07/02/20 17:06 Ordered Medication Orders Sodium Chloride (Sodium Chloride 0.9% 10 Ml Syringe) 10 ml FLUSH ASDIRECTED PRN PRN Reason: Keep Vein Open Last Admin: 07/02/20 17:13 Dose: 10 ml Documented by: LANE Labs: Laboratory Tests 07/02/20 07/02/20 07/02/20 Range/Units 16:50 16:50 17:45 WBC 12.29 H (3.98-10.04) K/mm3 RBC 4.59 (3.98-5.22) M/mm3 Hgb 14.1 (11.2-15.7) gm/dl Hct 42.2 (34.1-44.9) % MCV 91.9 (79.4-94.8) fl MCH 30.7 (25.6-32.2) pg MCHC 33.4 (32.2-35.5) g/dl RDW Std Deviation 44.3 (36.4-46.3) fL Plt Count 432 H (182-369) K/mm3 MPV 9.0 L (9.4-12.3) fl Neut % (Auto) 51.7 (34.0-71.1) % Lymph % (Auto) 39.1 (19.3-51.7) % [place] % (Auto) 7.2 (4.7-12.5) % Eos % (Auto) 1.5 (0.7-5.8) Baso % (Auto) 0.2 (0.1-1.2) % Neut # (Auto) 6.37 H (1.56-6.13) K/mm3 Lymph # (Auto) 4.80 H (1.18-3.74) K/mm3 [place] # (Auto) 0.88 H (0.24-0.36) K/mm3 Eos # (Auto) 0.18 (0.04-0.36) K/mm3 Baso # (Auto) 0.02 (0.01-0.08) K/mm3 Sodium 139 (136-145) mEq/L Potassium 3.9 (3.5-5.1) mEq/L Chloride 99 (98-107) mEq/L Carbon Dioxide 26 (21-32) mEq/L Anion Gap 17.9 H (5-15) BUN 17 (7-18) mg/dL Creatinine 0.8 (0.55-1.02) mg/dL Est Cr Clr Drug Dosing 54.90 mL/min Estimated GFR (MDRD) > 60 (>60) mL/min BUN/Creatinine Ratio 21.3 H (14-18) Glucose 132 H (80-115) mg/dL Calcium 9.2 D (8.5-10.1) mg/dL Magnesium 1.2 L (1.8-2.4) mg/dl Total Bilirubin 0.4 (0.2-1.0) mg/dL AST 17 (15-37) U/L ALT 31 (14-59) U/L Alkaline Phosphatase 68 (46-116) U/L C-Reactive Protein 1.3 H* (<1.0) mg/dL Total Protein 7.7 (6.4-8.2) g/dl Albumin 3.8 (3.4-5.0) g/dl Globulin 3.9 gm/dL Albumin/Globulin Ratio 1.0 (1-2) Urine Color Yellow (Yellow) Urine Appearance Clear (Clear) Urine pH 6.5 (5.0-8.0) Ur Specific [place] 1.015 (1.005-1.030) Urine Protein Negative (Negative) Urine Glucose (UA) Negative (Negative) Urine Ketones Negative (Negative) Urine Occult Blood Negative (Negative) Urine Nitrite Negative (Negative) Urine Bilirubin Negative (Negative) Urine Urobilinogen 0.2 (0.2-1.0) Ur Leukocyte Esterase Trace H (Negative) Urine RBC Not seen (0-5) /hpf Urine WBC 0-5 (0-5) /hpf Ur Squamous Epith Cells 5-10 H (0-5) /hpf Urine Bacteria Few (FEW) /hpf Urine Mucus Not seen (FEW) /hpf Meds: Medications Generic Name Dose Route Start Last Admin Trade Name Freq PRN Reason Stop Dose Admin Sodium Chloride 10 ml 07/02/20 17:06 07/02/20 17:13 Sodium Chloride 0.9% 10 Ml Syringe FLUSH 10 ml ASDIRECTED PRN Administration Keep Vein Open Discontinued Medications Generic Name Dose Route Start Last Admin Trade Name Freq PRN Reason Stop Dose Admin Magnesium Sulfate 4 gm/ Premix 50 mls @ 12.5 mls/hr 07/02/20 17:34 07/02/20 17:49 IV 07/02/20 21:33 12.5 mls/hr ONETIME ONE Administration Sodium Chloride 1,000 mls @ 999 mls/hr 07/02/20 17:34 07/02/20 17:48 Normal Saline IV 07/02/20 18:34 999 mls/hr ONETIME ONE Administration - Re-Assessments/Exams Free Text/Narrative Re-Assessment/Exam: 07/02/20 17:38 Patient's magnesium level is 1.2 and her anion gap is 17. I have ordered for the patient to receive 4gm magnesium IV and 1 liter of Normal Saline as she is dehydrated. 07/02/20 18:16 Labs reveal a WBC of 12.29, platelet count is 432, neutrophil percentage 51.7, sodium 139, potassium 3.9, anion gap 17.9, BUN 17, creatinine 0.8 glucose is 132, magnesium 1.2, C-reactive protein 1.3. Flat and upright of the abdomen reviewed by myself and Dr. Shen and nothing acute is appreciated. 07/02/20 19:31 Urinalysis reveals a trace of leuk esterase and 5-10 epithelial cells. Otherwise it is unremarkable. 07/02/20 21:46 Patient has received 1 L of normal saline and has completed her magnesium infusion. She has not had no issues with diarrhea the entire time she has been in the emergency department. She states she feels significantly better after the IV fluids and magnesium. I will discharge her to home. With recommendations that she follow-up with her primary care physician within the next week or 2. She will need to resume her oral magnesium supplementation that she had been taking prior. Departure - Departure Time of Disposition: 21:47 Disposition: Home, Self-Care 01 Condition: Good Clinical Impression: Hypomagnesemia Diarrhea Qualifiers: Diarrhea type: unspecified type Qualified Code(s): R19.7 - Diarrhea, unspecified - Discharge Information Instructions: Hypomagnesemia Referrals: Kaiden Tafoya Jr, MD [Primary Care Provider] - Forms: ED Department Discharge Additional Instructions: You were seen in the emergency department today with complaints of diarrhea, decreased appetite and fatigue. Labs were completed and these did reveal that your magnesium level was only at 1.2 and you were slightly dehydrated. Your white blood cell count was slightly elevated but I believe this is due to the dehydration. I could not find any other source of infection that is likely. You received 4 g of magnesium IV and a liter of IV fluids and after stated that you felt much better. Recommend that you resume taking your magnesium supplementation that you are taking prior. Slow-Mag would be another good option for you. Recommend that you follow-up with your primary care provider within the next couple of weeks to have your magnesium levels rechecked. Should your condition worsen or change do not hesitate returning to the emergency department. Sepsis Event Note (ED) - Evaluation Sepsis Screening Result: No Definite Risk - Focused Exam Vital Signs: Vital Signs Temp Pulse Resp BP Pulse Ox 07/02/20 16:44 97.6 F 99 16 138/87 100 - My Orders Last 24 Hours: My Active Orders 07/02/20 17:06 Abdomen 2V AP Flat Upright [CR] Stat Sodium Chloride 0.9% [Saline Flush] 10 ml FLUSH ASDIRECTED PRN Saline Lock Insert [OM.PC] Stat 07/02/20 17:45 CULTURE URINE [RM] Stat 07/02/20 17:50 C DIFFICILE PCR W/REFLEX [MOLEC] Stat STOOL CULTURE/SHIGA TOXIN [MREF] Stat - Assessment/Plan Last 24 Hours: My Active Orders 07/02/20 17:06 Abdomen 2V AP Flat Upright [CR] Stat Sodium Chloride 0.9% [Saline Flush] 10 ml FLUSH ASDIRECTED PRN Saline Lock Insert [OM.PC] Stat 07/02/20 17:45 CULTURE URINE [RM] Stat 07/02/20 17:50 C DIFFICILE PCR W/REFLEX [MOLEC] Stat STOOL CULTURE/SHIGA TOXIN [MREF] Stat
--- NOTE | 2020-07-03 07:49 | CR ---
Abdomen: Supine and upright views of the abdomen were obtained. Comparison: Prior abdominal x-ray of 07/20/14. Surgical clips are seen from prior cholecystectomy. Bowel gas pattern appears normal. Slight vascular calcification is noted. No free air is seen. Slight scoliosis is noted within the spine. Impression: 1. Findings as noted above. 2. Nothing acute is seen on 2 view abdominal x-ray. Diagnostic code #2
== END 2020-07-02 22:06 | disposition home or self-care (01) ==
LOC: JD.ED 16:34
DX: E83.42 Hypomagnesemia (principal); R19.7 Diarrhea, unspecified; E78.00 Pure hypercholesterolemia, unspecified; J44.9 Chronic obstructive pulmonary disease, unspecified; E11.9 Type 2 diabetes mellitus without complications; Z86.16 Personal history of COVID-19; Z72.0 Tobacco use; Z91.018 Allergy to other foods; Z91.048 Other nonmedicinal substance allergy status; Z88.8 Allergy status to other drugs, medicaments and biological substances; Z88.2 Allergy status to sulfonamides; Z91.012 Allergy to eggs; Z79.82 Long term (current) use of aspirin; Z79.84 Long term (current) use of oral hypoglycemic drugs; Z79.899 Other long term (current) drug therapy
CPT/HCPCS: 36415; 74019; 80053; 81001; 83735; 85025; 86140; 87086; 96365; 96366; 99284; J3475; J7030

== ENCOUNTER 2020-10-11 13:34 | Emergency (ER) | payer MEDICARE, OTHER ==
[2020-10-11 14:20] VITALS: BP 114/99; PULSE 83
--- NOTE | 2020-10-11 15:00 | EDM.PDOC ---
ED HPI GENERAL MEDICAL PROBLEM - General Chief Complaint: Neurological Problem Stated Complaint: ANXIETY Time Seen by Provider: 10/11/20 14:23 Source of Information: Reports: Patient, RN Notes Reviewed - History of Present Illness INITIAL COMMENTS - FREE TEXT/NARRATIVE: 69 yr old female had panic attack sx at home a couple of hrs ago, now feeling better after taking a xanax 0.25 mg orally about an hour ago. She had been on xanax 1 mg 3 or 4 times daily. Tapered her self off with her last 0.25 mg dose several wks ago. Started on Klonopin 1mg tid but she does no feel that is working as well. She has hopes of going back on the xanax as that was working much better for her. - Related Data Allergies Allergy/AdvReac Type Severity Reaction Status Date / Time adhesive Allergy Redness Verified 07/02/20 16:50 amantadine Allergy Other Verified 07/02/20 16:50 primidone Allergy Other Verified 07/02/20 16:50 propranolol Allergy Other Verified 07/02/20 16:50 shrimp Allergy Hives Verified 10/11/20 14:21 sulfacetamide Allergy Rash Verified 07/02/20 16:50 carbamazepine [From Tegretol] AdvReac Hallucinati Verified 07/02/20 16:50 ons egg AdvReac Abdominal Verified 07/02/20 16:50 Cramps gluten AdvReac Abdominal Verified 07/03/20 16:55 Cramps antidressant. AdvReac Change Uncoded 07/02/20 16:50 Mental Status Home Meds: Home Meds ALPRAZolam [Xanax] 1 mg PO QID 05/01/14 [History] Cholecalciferol (Vitamin D3) [Vitamin D3] 2,000 unit PO DAILY 05/01/14 [History] Estrogens, Conjugated [Premarin] 1.25 mg PO QPM 05/01/14 [History] Fluticasone Propionate [Flonase] 2 spray NASBOTH DAILY 05/01/14 [History] Fluticasone Propionate [Flovent HFA] 2 puff INH BID 05/01/14 [History] Lisinopril 5 mg PO DAILY 05/01/14 [History] metFORMIN [Glucophage] 750 mg PO DAILY 05/01/14 [History] Aspirin 81 mg PO DAILY 06/17/17 [History] metFORMIN [Glucophage XR] 500 mg PO BEDTIME 09/28/16 [History] L.acidoph,Paracasei, B.lactis [Probiotic] 1 tab PO DAILY 06/27/17 [History] Cholecalciferol (Vitamin D3) [Vitamin D3] 1,000 units PO BEDTIME 06/05/20 [History] Cholestyramine/Sucrose [Cholestyramine] 1 scoop PO QAM 06/05/20 [History] Ondansetron [Zofran ODT] 4 mg PO Q6H PRN #8 tab.dis 06/06/20 [Rx] Past Medical History Cardiovascular History: Reports: High Cholesterol Respiratory History: Reports: Asthma, Bronchitis, Recurrent, COPD Gastrointestinal History: Reports: Celiac Disease Genitourinary History: Reports: Renal Calculus, Urinary Incontinence Other Musculoskeletal History: patient has history of heriditary generalized tremors and twitching. Neurological History: Reports: Migraines, Other (See Below) Other Neuro History: Severe generalized familial tremors. Psychiatric History: Reports: Anxiety Endocrine/Metabolic History: Reports: Diabetes, Type II Oncologic (Cancer) History: Reports: Malignant Melanoma Dermatologic History: Reports: Benign Melanoma Other Dermatologic History: 7 years ago had area removed from back. - Infectious Disease History Infectious Disease History: Reports: Novel Coronavirus - Past Surgical History HEENT Surgical History: Reports: Tonsillectomy Cardiovascular Surgical History: Reports: None Respiratory Surgical History: Reports: None GI Surgical History: Reports: Appendectomy, Cholecystectomy Female Surgical History: Reports: Section, Hysterectomy, Salpingo- Oophorectomy Musculoskeletal Surgical History: Reports: Arthroscopic Procedure, ORIF Oncologic Surgical History: Reports: None Dermatological Surgical History: Reports: Skin Biopsy Social & Family History - Family History Family Medical History: No Pertinent Family History Neurological: Reports: Other (See Below) Other Neurological Family History: stroke, tremors Oncologic: Reports: Colon - Tobacco Use Tobacco Use Status *Q: Current Every Day Tobacco User Years of Tobacco use: 50 Packs/Tins Daily: 1 - Caffeine Use Caffeine Use: Reports: None - Recreational Drug Use Recreational Drug Use: No - Living Situation & Occupation Living situation: Reports: , with Spouse Occupation: Retired ED ROS GENERAL - Review of Systems Review Of Systems: See Below Constitutional: Reports: No Symptoms HEENT: Reports: No Symptoms Respiratory: Denies: Shortness of Breath Cardiovascular: Denies: Chest Pain GI/Abdominal: Denies: Abdominal Pain, Nausea, Vomiting Musculoskeletal: Reports: No Symptoms Skin: Reports: No Symptoms Neurological: Reports: Dizziness, Other (tremor, now better) Psychiatric: Reports: Anxiety (now beter) ED EXAM, GENERAL - Physical Exam Exam: See Below General Appearance: Alert, No Apparent Distress Throat/Mouth: Normal Inspection Head: Atraumatic Neck: Supple Respiratory/Chest: No Respiratory Distress, Lungs Clear, Normal Breath Sounds Cardiovascular: Regular Rate, Rhythm Extremities: Normal Inspection, Normal Range of Motion Neurological: Alert, Other (mild tremor, pt states this is baseline for her, no focal weakness) Skin Exam: Warm, Dry, Intact Course - Vital Signs Last Recorded V/S: Last Vital Signs Temp 98.1 F 10/11/20 14:12 Pulse 83 10/11/20 14:12 Resp 23 H 10/11/20 14:12 BP 114/99 H 10/11/20 14:12 Pulse Ox 98 10/11/20 14:12 - Re-Assessments/Exams Free Text/Narrative Re-Assessment/Exam: 10/11/20 20:50. Pt resting comfortably at time of exam, She has a good supply of xanax, discharge instr. as documented. Departure - Departure Time of Disposition: 14:55 Disposition: Home, Self-Care 01 Condition: Fair Clinical Impression: Tremor, hereditary, benign, Anxiety - Discharge Information Instructions: Managing Anxiety, Adult Referrals: Jesus Quintanilla MD [Primary Care Provider] - Forms: ED Department Discharge Additional Instructions: Decrease the Klonopin to 0.5 mg 3 times daily for the next few days, than go to 0.5 mg twice daily for 3 days, than 0.25 mg 3 times daily for 3 days, than 0.25 mg twice daily. In the meantime go ahead and take the xanax 0.25 mg 3 times daily as discussed. See Dr Quintanilla in about 10 days as planned. Return to ED as needed if symptoms worsening in any way. Sepsis Event Note (ED) - Evaluation Sepsis Screening Result: No Definite Risk - Focused Exam Vital Signs: Vital Signs Temp Pulse Resp BP Pulse Ox 10/11/20 14:12 98.1 F 83 23 H 114/99 H 98
== END 2020-10-11 15:30 | disposition home or self-care (01) ==
LOC: JD.ED 13:34
DX: F41.9 Anxiety disorder, unspecified (principal); R25.1 Tremor, unspecified; J44.9 Chronic obstructive pulmonary disease, unspecified; E11.9 Type 2 diabetes mellitus without complications; E78.00 Pure hypercholesterolemia, unspecified; Z88.5 Allergy status to narcotic agent; Z91.018 Allergy to other foods; Z91.012 Allergy to eggs; Z88.8 Allergy status to other drugs, medicaments and biological substances; Z79.899 Other long term (current) drug therapy; Z79.82 Long term (current) use of aspirin; Z86.16 Personal history of COVID-19
CPT/HCPCS: 99283

== ENCOUNTER 2020-10-29 10:42 | Emergency (ER) | payer MEDICARE, OTHER ==
[2020-10-29 11:13] VITALS: BP 136/63; PULSE 88
[2020-10-29] MEDS ORDERED: Sodium Chloride 0.9% 10 ML Syringe FLUSH PRN (11:24)
[2020-10-29] MEDS ORDERED: ALPRAZolam 0.25 MG Tab PO ONE (11:25)
[2020-10-29] MEDS ORDERED: Sodium Chloride 0.9% 1,000 ML IV STA (11:29)
[2020-10-29] MEDS ORDERED: Magnesium Sulfate/Water 2 GM in Premix Bag 1 BAG IV ONE (13:16)
--- NOTE | 2020-10-29 13:20 | EDM.PDOC ---
ED HPI GENERAL MEDICAL PROBLEM - General Chief Complaint: Neurological Problem Stated Complaint: ANXIETY TREMORS WEAK Time Seen by Provider: 10/29/20 11:04 Source of Information: Reports: Patient, RN Notes Reviewed History Limitations: Reports: No Limitations - History of Present Illness INITIAL COMMENTS - FREE TEXT/NARRATIVE: Patient is a 69-year-old female presenting to the emergency department with complaints of worsening of her essential tremors as well as increased anxiety. Patient developed hereditary essential tremor 20 years ago. She has tried numerous different medications for treatment and has found that the only medication of benefit has been Xanax. She reports that she was originally on Xanax 1 mg 4 times daily which was working quite well for her. Her primary care provider retired and she had to establish with a new provider. He attempted to wean her off of her Xanax and put her on Klonopin. During the process of this, her tremors worsened significantly and she began having panic attacks. She has since changed providers again and they are in the process of putting her back on her Xanax. She has discontinued the Klonopin with her last dose being on Friday of last week. She is currently taking Xanax 0.5 mg 3 times daily. This dose was increased from 0.25 mg 3 times daily on Friday. She reports that initially she had improvement in her tremors and anxiety after the dose increase on Friday, but as the week went on they have gradually increased. She took her Xanax 0.5 mg at around 8:00 this morning. She has been having increased wea kness which she attributes to her worsening tremor. She is also concerned that her magnesium may be low. Reports that she has a history of low magnesium and takes a magnesium supplement but that due to her celiac's disease, the magnesium does not absorb appropriately. She denies any fever, chills, chest pain, shortness of breath, nausea, vomiting, or diarrhea. Bilateral Shoulder Pain Score (Numeric/FACES): 5 Neck Pain Score (Numeric/FACES): 5 - Related Data Allergies Allergy/AdvReac Type Severity Reaction Status Date / Time clonazepam [From Klonopin] Allergy Severe Tremors Verified 10/29/20 11:04 adhesive Allergy Redness Verified 07/02/20 16:50 amantadine Allergy Other Verified 07/02/20 16:50 primidone Allergy Other Verified 07/02/20 16:50 propranolol Allergy Other Verified 07/02/20 16:50 shrimp Allergy Hives Verified 10/11/20 14:21 sulfacetamide Allergy Rash Verified 07/02/20 16:50 carbamazepine [From Tegretol] AdvReac Severe Hallucinati Verified 10/29/20 11:04 ons egg AdvReac Severe Abdominal Verified 10/29/20 11:04 Cramps gluten AdvReac Severe Abdominal Verified 10/29/20 11:04 Cramps antidressant. AdvReac Severe Change Uncoded 10/29/20 11:04 Mental Status Home Meds: Home Meds ALPRAZolam [Xanax] 1 mg PO QID 05/01/14 [History] Cholecalciferol (Vitamin D3) [Vitamin D3] 2,000 unit PO DAILY 05/01/14 [History] Estrogens, Conjugated [Premarin] 0.75 mg PO QPM 05/01/14 [History] Fluticasone Propionate [Flonase] 2 spray NASBOTH DAILY 05/01/14 [History] Fluticasone Propionate [Flovent HFA] 2 puff INH BID 05/01/14 [History] Lisinopril 5 mg PO DAILY 05/01/14 [History] metFORMIN [Glucophage] 750 mg PO DAILY 05/01/14 [History] Aspirin 81 mg PO DAILY 09/28/16 [History] metFORMIN [Glucophage XR] 500 mg PO BEDTIME MDD 500mg 09/28/16 [History] L.acidoph,Paracasei, B.lactis [Probiotic] 1 tab PO DAILY 06/27/17 [History] Cholecalciferol (Vitamin D3) [Vitamin D3] 1,000 units PO BEDTIME 06/05/20 [History] Cholestyramine/Sucrose [Cholestyramine] 1 scoop PO QAM 06/05/20 [History] ALPRAZolam [Xanax] 0.75 mg PO TID #27 tab 10/29/20 [Rx] Past Medical History Cardiovascular History: Reports: High Cholesterol Respiratory History: Reports: Asthma, Bronchitis, Recurrent, COPD Gastrointestinal History: Reports: Celiac Disease Genitourinary History: Reports: Renal Calculus, Urinary Incontinence Other Musculoskeletal History: patient has history of heriditary generalized tremors and twitching. Neurological History: Reports: Migraines, Other (See Below) Other Neuro History: Severe generalized familial tremors. Psychiatric History: Reports: Anxiety Endocrine/Metabolic History: Reports: Diabetes, Type II Oncologic (Cancer) History: Reports: Malignant Melanoma Dermatologic History: Reports: Benign Melanoma Other Dermatologic History: 7 years ago had area removed from back. - Infectious Disease History Infectious Disease History: Reports: Novel Coronavirus, Shingles - Past Surgical History HEENT Surgical History: Reports: Tonsillectomy Cardiovascular Surgical History: Reports: None Respiratory Surgical History: Reports: None GI Surgical History: Reports: Appendectomy, Cholecystectomy Female Surgical History: Reports: Section, Hysterectomy, Salpingo- Oophorectomy Musculoskeletal Surgical History: Reports: Arthroscopic Procedure, ORIF Oncologic Surgical History: Reports: None Dermatological Surgical History: Reports: Skin Biopsy Social & Family History - Family History Family Medical History: No Pertinent Family History Neurological: Reports: Other (See Below) Other Neurological Family History: stroke, tremors Oncologic: Reports: Colon - Tobacco Use Tobacco Use Status *Q: Current Every Day Tobacco User Years of Tobacco use: 50 Packs/Tins Daily: 0.4 - Caffeine Use Caffeine Use: Reports: None - Recreational Drug Use Recreational Drug Use: No - Living Situation & Occupation Living situation: Reports: , with Spouse Occupation: Retired ED ROS GENERAL - Review of Systems Review Of Systems: Comprehensive ROS is negative, except as noted in HPI. ED EXAM, NEURO - Physical Exam Exam: See Below Exam Limited By: No Limitations General Appearance: Alert, Anxious Eye Exam: Bilateral Eye: Normal Inspection Respiratory/Chest: No Respiratory Distress, Lungs Clear, Normal Breath Sounds, No Accessory Muscle Use, Chest Non-Tender Cardiovascular: Normal Peripheral Pulses, Regular Rate, Rhythm, No Edema, No Gallop, No JVD, No Murmur, No Rub GI/Abdominal: Normal Bowel Sounds, Soft, Non-Tender, No Organomegaly, No Distention, No Abnormal Bruit, No Mass Neurological: Alert, CN II-XII Intact, No Motor/Sensory Deficits, Tremor (Significant) Course - Vital Signs Last Recorded V/S: Last Vital Signs Temp 96.1 F L 10/29/20 11:10 Pulse 88 10/29/20 11:10 Resp 20 10/29/20 11:10 BP 136/63 10/29/20 11:10 Pulse Ox 97 10/29/20 11:10 - Orders/Labs/Meds Labs: Laboratory Tests 10/29/20 10/29/20 10/29/20 Range/Units 12:00 12:19 12:19 WBC 11.32 H (3.98-10.04) K/mm3 RBC 4.53 (3.98-5.22) M/mm3 Hgb 13.8 (11.2-15.7) gm/dl Hct 41.7 (34.1-44.9) % MCV 92.1 (79.4-94.8) fl MCH 30.5 (25.6-32.2) pg MCHC 33.1 (32.2-35.5) g/dl RDW Std Deviation 42.9 (36.4-46.3) fL Plt Count 381 H (182-369) K/mm3 MPV 9.2 L (9.4-12.3) fl Neut % (Auto) 69.1 (34.0-71.1) % Lymph % (Auto) 24.8 (19.3-51.7) % [place] % (Auto) 5.3 (4.7-12.5) % Eos % (Auto) 0.4 L (0.7-5.8) Baso % (Auto) 0.2 (0.1-1.2) % Neut # (Auto) 7.82 H (1.56-6.13) K/mm3 Lymph # (Auto) 2.81 (1.18-3.74) K/mm3 [place] # (Auto) 0.60 H (0.24-0.36) K/mm3 Eos # (Auto) 0.05 (0.04-0.36) K/mm3 Baso # (Auto) 0.02 (0.01-0.08) K/mm3 Manual Slide Review Abnormal smear Sodium 142 (136-145) mEq/L Potassium 4.5 (3.5-5.1) mEq/L Chloride 105 (98-107) mEq/L Carbon Dioxide 28 (21-32) mEq/L Anion Gap 13.5 (5-15) BUN 11 (7-18) mg/dL Creatinine 0.7 (0.55-1.02) mg/dL Est Cr Clr Drug Dosing 62.74 mL/min Estimated GFR (MDRD) > 60 (>60) mL/min BUN/Creatinine Ratio 15.7 (14-18) Glucose 111 H (70-99) mg/dL Calcium 9.3 (8.5-10.1) mg/dL Magnesium 1.6 L (1.8-2.4) mg/dL Total Bilirubin 0.1 L (0.2-1.0) mg/dL AST 11 L (15-37) U/L ALT 18 (14-59) U/L Alkaline Phosphatase 65 (46-116) U/L Troponin I < 0.017 (0.00-0.056) ng/mL Total Protein 6.9 (6.4-8.2) g/dl Albumin 3.4 (3.4-5.0) g/dl Globulin 3.5 gm/dL Albumin/Globulin Ratio 1.0 (1-2) Urine Color Yellow (Yellow) Urine Appearance Clear (Clear) Urine pH 7.0 (5.0-8.0) Ur Specific [place] 1.020 (1.005-1.030) Urine Protein Negative (Negative) Urine Glucose (UA) Negative (Negative) Urine Ketones Negative (Negative) Urine Occult Blood Negative (Negative) Urine Nitrite Negative (Negative) Urine Bilirubin Negative (Negative) Urine Urobilinogen 0.2 (0.2-1.0) Ur Leukocyte Esterase Negative (Negative) Urine RBC 0-5 (0-5) /hpf Urine WBC 0-5 (0-5) /hpf Ur Squamous Epith Cells 0-5 (0-5) /hpf Urine Bacteria Few (FEW) /hpf Urine Mucus Not seen (FEW) /hpf Meds: Medications Discontinued Medications Generic Name Dose Route Start Last Admin Trade Name Lee PRN Reason Stop Dose Admin Alprazolam 0.5 mg 10/29/20 11:25 10/29/20 12:52 Alprazolam 0.25 Mg Tab PO 10/29/20 11:26 0.5 mg ONETIME ONE Administration Sodium Chloride 1,000 mls @ 150 mls/hr 10/29/20 11:29 10/29/20 13:02 Normal Saline IV 10/29/20 18:08 150 mls/hr NOW STA Administration Magnesium Sulfate 2 gm/ Premix 50 mls @ 25 mls/hr 10/29/20 13:16 10/29/20 13:24 IV 10/29/20 15:15 25 mls/hr ONETIME ONE Administration Sodium Chloride 10 ml 10/29/20 11:24 10/29/20 13:09 Sodium Chloride 0.9% 10 Ml Syringe FLUSH 10 ml ASDIRECTED PRN Administration Keep Vein Open - Re-Assessments/Exams Free Text/Narrative Re-Assessment/Exam: Patient is a 69-year-old female presenting to the emergency department with complaints of worsening anxiety and tremor as well has concerns of possible hypomagnesemia. Her medications have been changed and she states that this caused worsening of her symptoms. They are in the process of putting her back on her Xanax 1 mg 4 times daily, however she is currently on Xanax 0.5 mg 3 times daily. On exam, she does have diffuse tremor. She is intermittently tearful and appears anxious. I have ordered blood work urinalysis. If normal saline 150 mils per hour, and alprazolam 0.5 mg p.o. 10/29/20 1320 Hematology was significant for WBC minimally elevated 11.32.. Urinalysis is negative for infection. Magnesium was found to be low at 1.6. Have ordered 2 g of IV magnesium to be given. 10/29/20 1530 Magnesium has finished and patient is feeling better. We will discharge her home. I will increase her Xanax to 0.75 mg 3 times daily and recommend follow- up with her primary care provider as scheduled. She is in agreement with this plan. Discharge instructions as documented. Departure - Departure Time of Disposition: 15:39 Disposition: Home, Self-Care 01 Condition: Good Clinical Impression: Benign familial tremor, Anxiety, Hypomagnesemia - Discharge Information *PRESCRIPTION DRUG MONITORING PROGRAM REVIEWED*: Yes *COPY OF PRESCRIPTION DRUG MONITORING REPORT IN PATIENT SHAHAB: No Prescriptions: ALPRAZolam [Xanax] 0.75 mg PO TID #27 tab Instructions: Hypomagnesemia Referrals: Jesus Quintanilla MD [Primary Care Provider] - Forms: ED Department Discharge Additional Instructions: You were seen in the emergency department today for increased anxiety and worsening of your tremor as well as concerns that your magnesium may be low. Blood work was completed and did show your magnesium was slightly low. You received 2 g of magnesium in the emergency department. He also received Xanax 0.5 mg. Recommend that you increase your Xanax dose to 0.75 mg 3 times daily. Contact your primary care provider's office tomorrow to let him know of these changes and inquire if you would like to see you sooner than next week. Return to ER for any new or worsening symptoms. Sepsis Event Note (ED) - Evaluation Sepsis Screening Result: No Definite Risk
== END 2020-10-29 15:50 | disposition home or self-care (01) ==
LOC: JD.ED 10:42
DX: F41.9 Anxiety disorder, unspecified (principal); E83.42 Hypomagnesemia; G25.0 Essential tremor; J44.9 Chronic obstructive pulmonary disease, unspecified; E11.9 Type 2 diabetes mellitus without complications; E78.00 Pure hypercholesterolemia, unspecified; Z72.0 Tobacco use; Z86.16 Personal history of COVID-19; Z88.8 Allergy status to other drugs, medicaments and biological substances; Z91.048 Other nonmedicinal substance allergy status; Z91.013 Allergy to seafood; Z88.2 Allergy status to sulfonamides; Z91.012 Allergy to eggs; Z91.018 Allergy to other foods; Z79.82 Long term (current) use of aspirin; Z79.84 Long term (current) use of oral hypoglycemic drugs; Z79.899 Other long term (current) drug therapy
CPT/HCPCS: 36415; 80053; 81001; 83735; 84484; 85025; 96365; 96366; 99284; A9270; J3475; J7030; 99283

== ENCOUNTER 2021-07-09 13:07 | Emergency (ER) | payer MEDICARE, OTHER ==
[2021-07-09 13:25] VITALS: BP 144/56; PULSE 95
[2021-07-09] MEDS ORDERED: Sodium Chloride 0.9% 1,000 ML IV STA (13:51)
[2021-07-09] MEDS ORDERED: Magnesium Sulfate/Water 2 GM in Premix Bag 1 BAG IV ONE (14:48)
[2021-07-09] MEDS ORDERED: Iopamidol 755 Mg/ML 100 ML Bottle IVPUSH ONE (15:25)
[2021-07-09] MEDS ORDERED: Sodium Chloride 0.9% 10 ML Syringe FLUSH ONE (15:25)
[2021-07-09] MEDS ORDERED: Sodium Chloride 0.9% 100 ML IV SCH (15:30)
== END 2021-07-09 18:30 | disposition home or self-care (01) ==
LOC: JD.ED 13:07
DX: R53.1 Weakness (principal); E83.42 Hypomagnesemia; J44.9 Chronic obstructive pulmonary disease, unspecified; E11.9 Type 2 diabetes mellitus without complications; Z91.048 Other nonmedicinal substance allergy status; Z91.012 Allergy to eggs; Z72.0 Tobacco use
CPT/HCPCS: 36415; 71045; 71275; 80053; 81001; 83735; 83880; 84484; 85025; 85379; 86140; 93005; 99285; J3475; J7030; Q9967; 93010; 99284

== ENCOUNTER 2022-07-23 11:18 | Emergency (ER) | payer MEDICARE, OTHER ==
[2022-07-23] MEDS ORDERED: Iopamidol 755 Mg/ML 100 ML Bottle IVPUSH ONE (11:42)
[2022-07-23] MEDS ORDERED: Sodium Chloride 0.9% 10 ML Syringe FLUSH ONE (11:42)
[2022-07-23] MEDS ORDERED: Sodium Chloride 0.9% 100 ML IV SCH (11:45)
[2022-07-23] MEDS ORDERED: Sodium Chloride 0.9% 1,000 ML IV SCH (11:45)
[2022-07-23 11:49] VITALS: BP 162/74; PULSE 89
[2022-07-23 13:24] LABS: CORONAVIRUS COVID-19 NAA NEGATIVE (NEGATIVE)
== END 2022-07-23 16:02 ==
LOC: JD.ED 11:18
DX: R53.1 Weakness (principal); R20.2 Paresthesia of skin; E78.00 Pure hypercholesterolemia, unspecified; I10 Essential (primary) hypertension; E11.9 Type 2 diabetes mellitus without complications; Z86.16 Personal history of COVID-19; Z91.012 Allergy to eggs; Z91.018 Allergy to other foods; Z91.048 Other nonmedicinal substance allergy status; Z88.8 Allergy status to other drugs, medicaments and biological substances; Z79.82 Long term (current) use of aspirin; Z79.84 Long term (current) use of oral hypoglycemic drugs; Z79.899 Other long term (current) drug therapy; Z72.0 Tobacco use; Z20.822 Contact with and (suspected) exposure to COVID-19
CPT/HCPCS: 0241U; 36415; 70450; 70496; 70498; 80053; 81001; 82947; 83735; 85025; 85610; 85730; 93005; 99285; J3490; Q9967; 93010

== ENCOUNTER 2023-04-07 10:27 | Emergency (ER) | payer MEDICARE, OTHER ==
[2023-04-07] MEDS ORDERED: Sodium Chloride 0.9% 10 ML Syringe FLUSH PRN (11:25)
[2023-04-07] MEDS ORDERED: Aspirin 81 MG Tab.Chew PO ONE (11:25)
[2023-04-07 11:41] LABS: BASOPHILS PERCENT AUTO 0.4 % (0.0-1.0); EOSINOPHILS ABSOLUTE AUTO 0.2 K/mm3 (0.0-0.4); EOSINOPHILS PERCENT AUTO 1.6 % (0.0-6.0); HEMATOCRIT 38.6 % (37.0-47.0); HEMOGLOBIN 12.6 gm/dl (12.0-16.0); IMMATURE GRAN ABSOLUTE AUTO 0.04 K/mm3 (0.00-0.05); IMMATURE GRAN PERCENT AUTO 0.4 % (0.0-0.4); LYMPHOCYTES PERCENT AUTO 38.3 % (24.0-44.0); MEAN CORPUSCULAR HEMOGLOBIN 30.5 pg (28.0-32.0); MEAN CORPUSCULAR HGB CONC 32.6 g/dl (32.0-36.0); MEAN CORPUSCULAR VOLUME 93.5 fl (83.0-99.0); MEAN PLATELET VOLUME 8.7 fl (9.4-12.3); MONOCYTES ABSOLUTE AUTO 0.5 K/mm3 (0.0-0.8); MONOCYTES PERCENT AUTO 5.1 % (0.0-8.0); NEUTROPHILS ABSOLUTE AUTO 5.7 K/mm3 (1.8-7.7); NEUTROPHILS PERCENT AUTO 54.2 % (41.0-71.0); PLATELET COUNT,PLT 363 K/mm3 (150-400); RED BLOOD CELL COUNT 4.13 M/mm3 (4.10-5.30); WHITE BLOOD CELL COUNT,WBC 10.47 K/mm3 (3.9-11.3)
[2023-04-07 12:09] LABS: ALBUMIN 3.8 g/dl (3.4-5.0); ANION GAP 14.3 (5-15); BILIRUBIN TOTAL 0.2 mg/dL (0.2-1.0); BUN/CREATININE RATIO 18.9 (14-18); CALCIUM 9.7 mg/dL (8.5-10.1); CREATININE 0.9 mg/dL (0.55-1.02); EST CRCL DRUG DOSING (CG) 46.74 mL/min; MAGNESIUM 1.3 mg/dL (1.8-2.4); POTASSIUM,K 4.3 mEq/L (3.5-5.1); PROTEIN TOTAL,TP 7.8 g/dl (6.4-8.2)
[2023-04-07 12:16] LABS: CORONAVIRUS COVID-19 NAA NEGATIVE (NEGATIVE); INFLUENZA A NAA NEGATIVE (NEGATIVE); RESPIRATORY SYNCYTIAL VIR NAA NEGATIVE (NEGATIVE)
[2023-04-07 12:17] LABS: PROTHROMBIN TIME 9.7 SECONDS (9.7-12.0)
[2023-04-07 12:19] LABS: INR < 0.93
[2023-04-07 12:20] LABS: D-DIMER QUANTITATIVE 0.64 mg/L (0.19-0.50)
[2023-04-07] MEDS ORDERED: Sodium Chloride 0.9% 100 ML IV SCH (13:00)
[2023-04-07] MEDS ORDERED: Iopamidol 755 Mg/ML 100 ML Bottle IVPUSH ONE (13:00)
[2023-04-07 14:22] VITALS: BP 148/74; PULSE 66
== END 2023-04-07 14:17 | disposition home or self-care (01) ==
LOC: JD.ED 10:27
DX: M54.6 Pain in thoracic spine (principal); M79.601 Pain in right arm; E83.42 Hypomagnesemia; R79.1 Abnormal coagulation profile; F17.210 Nicotine dependence, cigarettes, uncomplicated; I10 Essential (primary) hypertension; J45.909 Unspecified asthma, uncomplicated; E78.00 Pure hypercholesterolemia, unspecified; E11.9 Type 2 diabetes mellitus without complications; Z86.16 Personal history of COVID-19; Z20.822 Contact with and (suspected) exposure to COVID-19; Z90.710 Acquired absence of both cervix and uterus; Z91.012 Allergy to eggs; Z91.013 Allergy to seafood; Z91.018 Allergy to other foods; Z88.8 Allergy status to other drugs, medicaments and biological substances
CPT/HCPCS: 0241U; 36415; 71045; 71275; 80053; 83735; 83880; 84484; 85025; 85379; 85610; 93005; 99284; A9270; J3490; Q9967

== ENCOUNTER 2023-08-12 16:34 | Emergency (ER) | payer MEDICARE, OTHER ==
[2023-08-12] MEDS: Iopamidol 612 MG/ML 100 ML Bottle IVPUSH ONE (21:24)
[2023-08-12 23:05] VITALS: BP 133/70; PULSE 83
== END 2023-08-12 22:20 | disposition home or self-care (01) ==
LOC: JD.ED 16:34
DX: S73.102A Unspecified sprain of left hip, initial encounter (principal); S76.812A Strain of other specified muscles, fascia and tendons at thigh level, left thigh, initial encounter; E78.00 Pure hypercholesterolemia, unspecified; R19.09 Other intra-abdominal and pelvic swelling, mass and lump; J45.909 Unspecified asthma, uncomplicated; E11.9 Type 2 diabetes mellitus without complications; Z79.899 Other long term (current) drug therapy; Z79.82 Long term (current) use of aspirin; Z79.84 Long term (current) use of oral hypoglycemic drugs; Z91.012 Allergy to eggs; Z91.018 Allergy to other foods; Z88.8 Allergy status to other drugs, medicaments and biological substances; Z91.013 Allergy to seafood; Z91.048 Other nonmedicinal substance allergy status; Z88.6 Allergy status to analgesic agent; X58.XXXA Exposure to other specified factors, initial encounter
CPT/HCPCS: 36415; 72193; 76881; 85379; 93971; 99284; Q9967

== ENCOUNTER 2024-01-22 10:28 | Emergency (ER) | payer MEDICARE, OTHER ==
[2024-01-22 12:04] LABS: BASOPHILS PERCENT AUTO 0.4 % (0.0-1.0); EOSINOPHILS ABSOLUTE AUTO 0.3 K/mm3 (0.0-0.4); EOSINOPHILS PERCENT AUTO 3.1 % (0.0-6.0); HEMATOCRIT 40.4 % (37.0-47.0); HEMOGLOBIN 13.4 gm/dl (12.0-16.0); IMMATURE GRAN ABSOLUTE AUTO 0.02 K/mm3 (0.00-0.05); IMMATURE GRAN PERCENT AUTO 0.2 % (0.0-0.4); LYMPHOCYTES ABSOLUTE AUTO 2.4 K/mm3 (1.0-4.8); LYMPHOCYTES PERCENT AUTO 25.6 % (24.0-44.0); MEAN CORPUSCULAR HEMOGLOBIN 30.2 pg (28.0-32.0); MEAN CORPUSCULAR HGB CONC 33.2 g/dl (32.0-36.0); MEAN PLATELET VOLUME 8.9 fl (9.4-12.3); MONOCYTES ABSOLUTE AUTO 0.5 K/mm3 (0.0-0.8); MONOCYTES PERCENT AUTO 5.9 % (0.0-8.0); NEUTROPHILS PERCENT AUTO 64.8 % (41.0-71.0); PLATELET COUNT,PLT 342 K/mm3 (150-400); RED BLOOD CELL COUNT 4.44 M/mm3 (4.10-5.30); WHITE BLOOD CELL COUNT,WBC 9.18 K/mm3 (3.9-11.3)
[2024-01-22 12:26] LABS: ALBUMIN 3.7 g/dl (3.4-5.0); ANION GAP 10.8 (5-15); BILIRUBIN TOTAL 0.3 mg/dL (0.2-1.0); BUN/CREATININE RATIO 23.8 (14-18); CALCIUM 9.4 mg/dL (8.5-10.1); CREATININE 0.8 mg/dL (0.55-1.02); EST CRCL DRUG DOSING (CG) 51.81 mL/min; MAGNESIUM 1.6 mg/dL (1.8-2.4); POTASSIUM,K 4.8 mEq/L (3.5-5.1); PROTEIN TOTAL,TP 7.3 g/dl (6.4-8.2)
[2024-01-22] MEDS: Sodium Chloride 0.9% 1,000 ML IV ONE (12:36)
[2024-01-22] MEDS: Magnesium Oxide 400 MG Tab PO ONE (13:07)
[2024-01-22 14:07] VITALS: BP 127/94; PULSE 73
== END 2024-01-22 14:07 | disposition home or self-care (01) ==
LOC: JD.ED 10:28
DX: E11.40 Type 2 diabetes mellitus with diabetic neuropathy, unspecified (principal); E78.00 Pure hypercholesterolemia, unspecified; J45.909 Unspecified asthma, uncomplicated; Z86.16 Personal history of COVID-19; Z90.710 Acquired absence of both cervix and uterus; Z79.84 Long term (current) use of oral hypoglycemic drugs; Z79.82 Long term (current) use of aspirin; Z79.899 Other long term (current) drug therapy; Z88.8 Allergy status to other drugs, medicaments and biological substances; Z91.018 Allergy to other foods; Z91.012 Allergy to eggs; Z91.013 Allergy to seafood; Z91.048 Other nonmedicinal substance allergy status
CPT/HCPCS: 36415; 80053; 83735; 85025; 93971; 96360; 99284; J7030; 99282; A9270-GY

== ENCOUNTER 2024-12-15 08:09 | Emergency (ER) | payer MEDICARE, OTHER ==
[2024-12-15] MEDS: Ondansetron 4 MG/2 ML SDV IVPUSH ONE (09:22)
[2024-12-15] MEDS: Magnesium Sulf/Wat 4 GM/50 mL 4 GM in Premix Bag 1 BAG IV ONE (09:22)
[2024-12-15 09:42] LABS: BASOPHILS ABSOLUTE AUTO 0.1 K/mm3 (0.0-0.2); BASOPHILS PERCENT AUTO 0.4 % (0.0-1.0); EOSINOPHILS ABSOLUTE AUTO 0.1 K/mm3 (0.0-0.4); EOSINOPHILS PERCENT AUTO 0.8 % (0.0-6.0); IMMATURE GRAN ABSOLUTE AUTO 0.03 K/mm3 (0.00-0.05); IMMATURE GRAN PERCENT AUTO 0.3 % (0.0-0.4); LYMPHOCYTES ABSOLUTE AUTO 2.5 K/mm3 (1.0-4.8); LYMPHOCYTES PERCENT AUTO 21.6 % (24.0-44.0); MEAN PLATELET VOLUME 9.2 fl (9.4-12.3); MONOCYTES ABSOLUTE AUTO 0.5 K/mm3 (0.0-0.8); MONOCYTES PERCENT AUTO 4.6 % (0.0-8.0); NEUTROPHILS ABSOLUTE AUTO 8.2 K/mm3 (1.8-7.7); NEUTROPHILS PERCENT AUTO 72.3 % (41.0-71.0); NRBC ABSOLUTE 0.00 (0.00-0.02); NRBC PERCENT 0.0 % (0.0-0.2); PLATELET COUNT,PLT 326 K/mm3 (150-400); RED BLOOD CELL COUNT 4.75 M/mm3 (4.10-5.30); WHITE BLOOD CELL COUNT,WBC 11.35 K/mm3 (3.9-11.3)
[2024-12-15 10:05] LABS: A/G RATIO 1.0 (1-2); ALANINE AMINOTRANSFERASE,ALT 23.0 U/L (14-59); ASPARTATE AMNIOTRANSFERASE,AST 14.0 U/L (15-37); BILIRUBIN TOTAL 0.3 mg/dL (0.2-1.0); BLOOD UREA NITROGEN,BUN 14.0 mg/dL (7-18); CARBON DIOXIDE,CO2 32.0 mEq/L (21-32); CHLORIDE,CL 101.0 mEq/L (98-107); CREATINE KINASE,CK 40.0 U/L (26-192); CREATININE 1.0 mg/dL (0.55-1.02); EST CRCL DRUG DOSING (CG) 40.83 mL/min; ESTIMATED GFR 59.0 mL/min (>60); GLUCOSE RANDOM 155.0 mg/dL (70-99); POTASSIUM,K 4.7 mEq/L (3.5-5.1); PROTEIN TOTAL,TP 7.4 g/dl (6.4-8.2); SODIUM,NA 140.0 mEq/L (136-145)
[2024-12-15 13:20] VITALS: BP 115/60; PULSE 65
== END 2024-12-15 13:11 | disposition home or self-care (01) ==
LOC: JD.ED 08:09
DX: E86.9 Volume depletion, unspecified (principal); E83.42 Hypomagnesemia; E11.9 Type 2 diabetes mellitus without complications; J44.89 Other specified chronic obstructive pulmonary disease; R19.7 Diarrhea, unspecified; Z87.19 Personal history of other diseases of the digestive system; Z91.048 Other nonmedicinal substance allergy status; Z88.8 Allergy status to other drugs, medicaments and biological substances; Z91.013 Allergy to seafood; Z91.012 Allergy to eggs; Z79.899 Other long term (current) drug therapy; Z79.51 Long term (current) use of inhaled steroids; Z79.82 Long term (current) use of aspirin; Z79.84 Long term (current) use of oral hypoglycemic drugs; Z86.16 Personal history of COVID-19; Z90.49 Acquired absence of other specified parts of digestive tract; Z90.710 Acquired absence of both cervix and uterus
CPT/HCPCS: 80053; 82550; 83690; 83735; 85025; 86140; 96365; 96375; 99284; J2405; J3475; J7030

== ENCOUNTER 2025-01-09 08:28 | Emergency (ER) | payer MEDICARE, OTHER ==
[2025-01-09 09:31] LABS: BASOPHILS ABSOLUTE AUTO 0.0 K/mm3 (0.0-0.2); BASOPHILS PERCENT AUTO 0.4 % (0.0-1.0); EOSINOPHILS ABSOLUTE AUTO 0.1 K/mm3 (0.0-0.4); EOSINOPHILS PERCENT AUTO 1.2 % (0.0-6.0); IMMATURE GRAN ABSOLUTE AUTO 0.04 K/mm3 (0.00-0.05); IMMATURE GRAN PERCENT AUTO 0.4 % (0.0-0.4); LYMPHOCYTES ABSOLUTE AUTO 2.0 K/mm3 (1.0-4.8); LYMPHOCYTES PERCENT AUTO 18.5 % (24.0-44.0); MEAN PLATELET VOLUME 9.3 fl (9.4-12.3); MONOCYTES ABSOLUTE AUTO 0.6 K/mm3 (0.0-0.8); MONOCYTES PERCENT AUTO 5.1 % (0.0-8.0); NEUTROPHILS ABSOLUTE AUTO 8.1 K/mm3 (1.8-7.7); NEUTROPHILS PERCENT AUTO 74.4 % (41.0-71.0); NRBC ABSOLUTE 0.00 (0.00-0.02); NRBC PERCENT 0.0 % (0.0-0.2); PLATELET COUNT,PLT 366 K/mm3 (150-400); RED BLOOD CELL COUNT 4.73 M/mm3 (4.10-5.30); WHITE BLOOD CELL COUNT,WBC 10.88 K/mm3 (3.9-11.3)
[2025-01-09 09:47] LABS: A/G RATIO 1.0 (1-2); ALANINE AMINOTRANSFERASE,ALT 24.0 U/L (14-59); ASPARTATE AMNIOTRANSFERASE,AST 18.0 U/L (15-37); BILIRUBIN TOTAL 0.6 mg/dL (0.2-1.0); BLOOD UREA NITROGEN,BUN 14.0 mg/dL (7-18); CARBON DIOXIDE,CO2 29.0 mEq/L (21-32); CHLORIDE,CL 104.0 mEq/L (98-107); CREATINE KINASE,CK 78.0 U/L (26-192); CREATININE 0.9 mg/dL (0.55-1.02); EST CRCL DRUG DOSING (CG) 45.36 mL/min; ESTIMATED GFR 67.0 mL/min (>60); GLUCOSE RANDOM 181.0 mg/dL (70-99); POTASSIUM,K 4.7 mEq/L (3.5-5.1); PROTEIN TOTAL,TP 7.4 g/dl (6.4-8.2); SODIUM,NA 143.0 mEq/L (136-145)
[2025-01-09 10:03] LABS: APPEARANCE,URINE CLEAR (Clear); GLUCOSE,URINE NEGATIVE (Negative); OCCULT BLOOD,URINE NEGATIVE (Negative)
[2025-01-09] MEDS: Sodium Chloride 0.9% 10 ML Syringe FLUSH ONE (10:06)
[2025-01-09] MEDS: Iopamidol 612 MG/ML 100 ML Bottle IVPUSH ONE (10:06)
[2025-01-09 10:14] LABS: SQUAMOUS EPITHELIAL CELLS,UR 0-5 /hpf (0-5)
[2025-01-09 14:16] VITALS: BP 113/68; PULSE 81
== END 2025-01-09 12:39 | disposition home or self-care (01) ==
LOC: JD.ED 08:28
DX: K57.30 Diverticulosis of large intestine without perforation or abscess without bleeding (principal); N39.0 Urinary tract infection, site not specified; F41.9 Anxiety disorder, unspecified; E78.00 Pure hypercholesterolemia, unspecified; E11.9 Type 2 diabetes mellitus without complications; Z91.048 Other nonmedicinal substance allergy status; Z91.013 Allergy to seafood; Z91.012 Allergy to eggs; Z88.8 Allergy status to other drugs, medicaments and biological substances; Z91.018 Allergy to other foods; Z79.899 Other long term (current) drug therapy; Z79.82 Long term (current) use of aspirin; Z79.84 Long term (current) use of oral hypoglycemic drugs; Z86.16 Personal history of COVID-19
CPT/HCPCS: 36415; 74177; 74177-26; 80053; 81001; 82550; 83735; 85025; 96374; 99283; 99285-25; J0696; Q9967